=== PATIENT | female | born 1955 | race African-American/Black ===

== ENCOUNTER 2021-02-27 02:38 | Inpatient (IN) | payer MEDICARE, MEDICAID ==
[~2021-02-27] VITALS: Ht 167.6 cm; Wt 67.0 kg
[2021-02-27] MEDS ORDERED: METHYLPREDNISOLONE SOD SUCC 125 MG/2 ML VIAL IV STA (02:55)
[2021-02-27] MEDS ORDERED: ALBUTEROL (0.083%) 2.5MG/3ML NEB HHN STA (02:55)
[2021-02-27] MEDS ORDERED: IPRATROPIUM BROMIDE (0.02%) 0.5MG/2.5ML NEB HHN STA (02:55)
[2021-02-27] MEDS ORDERED: LEVOFLOXACIN 750MG PREMIX 150 ML IV ONE (03:00)
[2021-02-27] MEDS ORDERED: MAGNESIUM 2 G PREMIX 50 ML IV ONE (03:00)
[2021-02-27 03:26] LABS: HEMATOCRIT. 35.4 % (36.0-48.0); HEMOGLOBIN. 10.9 g/dL (12.0-16.0); MEAN CORPUSCULAR HEMOGLOBIN 23.3 pg (28.0-32.0); MEAN PLATELET VOLUME 7.9 fl (7.4-10.4); PLATELET 339 x1000/uL (130-400); RED BLOOD CELL COUNT 4.66 mill/uL (4.2-5.4); RED CELL DISTRIBUTION WIDTH 16.5 % (11.6-14.6)
[2021-02-27 03:30] LABS: CHLORIDE 104 mEq/L (98-107)
[2021-02-27 03:33] LABS: D-DIMER < 0.19 mg/L FEU (<0.50); PROTHROMBIN TIME 10.9 sec (9.6-11.0)
[2021-02-27] MEDS ORDERED: SODIUM CHLORIDE 0.9% 1000ML BAG (SEPSIS BOLUS) IV ONE (04:30)
[2021-02-27 06:53] VITALS: BP 130/97
[2021-02-27 07:40] VITALS: BP_SYST 127; BP_SYST 136; BP_DIAS 62
[2021-02-27 07:40] LABS: PLATELET ESTIMATE NORMAL
[2021-02-27] MEDS ORDERED: HYDR-4001 PO (08:05)
[2021-02-27] MEDS ORDERED: GABA-290 PO (08:05)
[2021-02-27] MEDS ORDERED: FURO80TA87 PO (08:05)
[2021-02-27] MEDS ORDERED: GABA-532 PO (08:05)
[2021-02-27] MEDS: AZITHROMYCIN 250 MG TABLET PO SCH (09:14)
[2021-02-27] MEDS: CEFTRIAXONE 1,000 MG in DEXTROSE 5% WATER 50 ML IV SCH (10:09)
[2021-02-27] MEDS: ALPRAZOLAM 0.5 MG TABLET PO PRN ×2 (11:21→20:15)
[2021-02-27] MEDS: GUAIFENESIN-DM 200MG-20MG/10ML UDC PO PRN ×2 (11:22→17:50)
[2021-02-27 12:00] VITALS: BP 134/68
[2021-02-27] MEDS ORDERED: ALBUTEROL 6.7GM HFA INHALER ORI PRN (14:00)
[2021-02-27] MEDS: ENOXAPARIN 40MG/0.4ML SYR SUBCUT SCH (14:25)
[2021-02-27 16:00] VITALS: BP 110/59
[2021-02-27 20:00] VITALS: BP 120/69
[2021-02-27 20:39] LABS: CHLORIDE 104 mEq/L (98-107)
[2021-02-28] VITALS (10 sets, daily range): BP systolic 106–132; BP diastolic 52–76
[2021-02-28] MEDS: ACETAMINOPHEN 325MG TABLET PO PRN (01:15)
[2021-02-28] MEDS: ONDANSETRON HCL 4MG/2ML INJ IV PRN ×2 (02:06→21:46)
[2021-02-28] MEDS: GUAIFENESIN-DM 200MG-20MG/10ML UDC PO PRN ×3 (02:18→21:46)
[2021-02-28] MEDS: CEFTRIAXONE 1,000 MG in DEXTROSE 5% WATER 50 ML IV SCH (08:21)
[2021-02-28] MEDS: AZITHROMYCIN 250 MG TABLET PO SCH (11:32)
[2021-02-28] MEDS: HYDROCODONE/ACETAMINOPHEN 5/325MG TABLET PO PRN (13:36)
[2021-02-28] MEDS: ENOXAPARIN 40MG/0.4ML SYR SUBCUT SCH (13:42)
[2021-03-01] VITALS (12 sets, daily range): BP systolic 105–131; BP diastolic 54–84
[2021-03-01] MEDS: HYDROCODONE/ACETAMINOPHEN 5/325MG TABLET PO PRN (01:50)
[2021-03-01] MEDS: ALPRAZOLAM 0.5 MG TABLET PO PRN ×2 (08:42→16:49)
[2021-03-01] MEDS: CEFTRIAXONE 1,000 MG in DEXTROSE 5% WATER 50 ML IV SCH (08:42)
[2021-03-01] MEDS: AZITHROMYCIN 250 MG TABLET PO SCH (08:42)
[2021-03-01] MEDS: GUAIFENESIN-DM 200MG-20MG/10ML UDC PO PRN ×3 (14:02→18:46)
[2021-03-01] MEDS: ENOXAPARIN 40MG/0.4ML SYR SUBCUT SCH (14:02)
[2021-03-01] MEDS: ACETAMINOPHEN 325MG TABLET PO PRN (14:34)
[2021-03-01] MEDS: ONDANSETRON HCL 4MG/2ML INJ IV PRN (14:34)
[2021-03-01] MEDS: IPRATROPIUM/ALBUTEROL 0.5-3(2.5)MG/3ML NEB HHN PRN (14:47)
[2021-03-01] MEDS: DOCUSATE SODIUM 100MG CAPSULE PO SCH (16:49)
[2021-03-02] VITALS (9 sets, daily range): BP systolic 98–136; BP diastolic 59–86
[2021-03-02] MEDS: HYDROCODONE/ACETAMINOPHEN 5/325MG TABLET PO PRN ×2 (01:41→23:42)
[2021-03-02 08:16] LABS: CHLORIDE 106 mEq/L (98-107)
[2021-03-02] MEDS: DOCUSATE SODIUM 100MG CAPSULE PO SCH ×2 (08:42→17:14)
[2021-03-02] MEDS: ALPRAZOLAM 0.5 MG TABLET PO PRN ×2 (08:42→17:14)
[2021-03-02] MEDS: AZITHROMYCIN 250 MG TABLET PO SCH (08:42)
[2021-03-02] MEDS: CEFTRIAXONE 1,000 MG in DEXTROSE 5% WATER 50 ML IV SCH (08:42)
[2021-03-02] MEDS ORDERED: LIDOCAINE HCL 1% 20ML VIAL (Pyxis) INJ ONE (09:54)
[2021-03-02] MEDS: GUAIFENESIN-DM 200MG-20MG/10ML UDC PO PRN ×2 (12:18→23:49)
[2021-03-02] MEDS: ENOXAPARIN 40MG/0.4ML SYR SUBCUT SCH (15:15)
[2021-03-02] MEDS: LACTULOSE 20G/30ML UDC PO PRN (17:14)
[2021-03-02] MEDS: ACETAMINOPHEN 325MG TABLET PO PRN (18:45)
[2021-03-02] MEDS: ONDANSETRON HCL 4MG/2ML INJ IV PRN (18:45)
[2021-03-02] MEDS: IPRATROPIUM/ALBUTEROL 0.5-3(2.5)MG/3ML NEB HHN SCH (20:11)
[2021-03-02 21:55] LABS: BASOPHILS % 0.9 % (0.0-2.0); EOSINOPHILS % 2.7 % (0.0-5.0); HEMOGLOBIN. 9.8 g/dL (12.0-16.0); LYMPHOCYTES % 11.4 % (20.0-50.0); MEAN CORPUSCULAR HEMOGLOBIN 23.4 pg (28.0-32.0); MEAN CORPUSCULAR VOLUME 76.5 fL (81.0-99.0); MEAN PLATELET VOLUME 8.1 fl (7.4-10.4); MONOCYTES % 5.5 % (2.0-8.0); NEUTROPHILS % 79.5 % (40.0-76.0); PLATELET 326 x1000/uL (130-400); RED BLOOD CELL COUNT 4.18 mill/uL (4.2-5.4); RED CELL DISTRIBUTION WIDTH 16.7 % (11.6-14.6)
[2021-03-03] VITALS (11 sets, daily range): BP systolic 105–125; BP diastolic 56–74
[2021-03-03] MEDS: IPRATROPIUM/ALBUTEROL 0.5-3(2.5)MG/3ML NEB HHN SCH ×4 (02:07→20:36)
[2021-03-03] MEDS: ALPRAZOLAM 0.5 MG TABLET PO PRN (02:24)
[2021-03-03] MEDS: GUAIFENESIN-DM 200MG-20MG/10ML UDC PO PRN ×2 (08:36→15:32)
[2021-03-03] MEDS: CEFTRIAXONE 1,000 MG in DEXTROSE 5% WATER 50 ML IV SCH (08:36)
[2021-03-03] MEDS: DOCUSATE SODIUM 100MG CAPSULE PO SCH ×2 (08:36→16:19)
[2021-03-03] MEDS: ENOXAPARIN 30MG/0.3ML SYR SUBCUT SCH ×2 (08:36→21:29)
[2021-03-03] MEDS: AZITHROMYCIN 250 MG TABLET PO SCH (08:36)
[2021-03-03] MEDS: HYDROCODONE/ACETAMINOPHEN 5/325MG TABLET PO PRN ×2 (10:34→15:35)
[2021-03-03 22:49] LABS: CLARITY URINE CLEAR (CLEAR); COLOR URINE DARK YELLOW (YELLOW); KETONES URINE TRACE (NEGATIVE); LEUKOCYTE ESTERASE URINE NEGATIVE (NEGATIVE); NITRITE URINE NEGATIVE (NEGATIVE); OCCULT BLOOD URINE NEGATIVE (NEGATIVE); PROTEIN URINE TRACE (NEGATIVE); SPECIFIC GRAVITY URINE 1.035 (1.005-1.030)
[2021-03-04] VITALS (12 sets, daily range): BP systolic 108–129; BP diastolic 56–80
[2021-03-04] MEDS: GUAIFENESIN-DM 200MG-20MG/10ML UDC PO PRN ×3 (00:56→16:32)
[2021-03-04] MEDS: HYDROCODONE/ACETAMINOPHEN 5/325MG TABLET PO PRN ×2 (00:57→08:58)
[2021-03-04] MEDS: IPRATROPIUM/ALBUTEROL 0.5-3(2.5)MG/3ML NEB HHN SCH ×4 (08:31→21:19)
[2021-03-04] MEDS: ENOXAPARIN 30MG/0.3ML SYR SUBCUT SCH ×2 (08:57→21:08)
[2021-03-04] MEDS: DOCUSATE SODIUM 100MG CAPSULE PO SCH ×2 (08:57→16:32)
[2021-03-04] MEDS: ALPRAZOLAM 0.5 MG TABLET PO PRN (16:32)
[2021-03-04] MEDS: ONDANSETRON HCL 4MG/2ML INJ IV PRN (21:08)
[2021-03-05] VITALS (9 sets, daily range): BP systolic 101–137; BP diastolic 55–82
[2021-03-05] MEDS: IPRATROPIUM/ALBUTEROL 0.5-3(2.5)MG/3ML NEB HHN SCH ×5 (03:26→23:30)
[2021-03-05] MEDS: ONDANSETRON HCL 4MG/2ML INJ IV PRN ×3 (04:21→21:20)
[2021-03-05] MEDS: GUAIFENESIN-DM 200MG-20MG/10ML UDC PO PRN ×3 (04:21→21:20)
[2021-03-05] MEDS: ENOXAPARIN 30MG/0.3ML SYR SUBCUT SCH ×2 (08:12→20:09)
[2021-03-05] MEDS: DOCUSATE SODIUM 100MG CAPSULE PO SCH ×2 (08:12→20:11)
[2021-03-05] MEDS: ACETAMINOPHEN 325MG TABLET PO PRN ×2 (08:12→20:09)
[2021-03-05] MEDS: ALPRAZOLAM 0.5 MG TABLET PO PRN ×2 (11:40→23:37)
[2021-03-05 13:22] LABS: BASOPHILS % 0.8 % (0.0-2.0); EOSINOPHILS % 2.2 % (0.0-5.0); HEMATOCRIT. 29.2 % (36.0-48.0); HEMOGLOBIN. 9.2 g/dL (12.0-16.0); LYMPHOCYTES % 18.7 % (20.0-50.0); MEAN CORPUSCULAR HEMOGLOBIN 24.2 pg (28.0-32.0); MEAN CORPUSCULAR VOLUME 76.4 fL (81.0-99.0); MEAN PLATELET VOLUME 8.1 fl (7.4-10.4); MONOCYTES % 5.7 % (2.0-8.0); NEUTROPHILS % 72.6 % (40.0-76.0); PLATELET 252 x1000/uL (130-400); RED BLOOD CELL COUNT 3.82 mill/uL (4.2-5.4)
[2021-03-05 13:35] LABS: CHLORIDE 103 mEq/L (98-107)
[2021-03-05] MEDS ORDERED: NALOXONE HCL 0.4MG/ML VIAL IV PRN (23:15)
[2021-03-06] VITALS: BP 105/63
[2021-03-06] MEDS: IPRATROPIUM/ALBUTEROL 0.5-3(2.5)MG/3ML NEB HHN SCH ×5 (03:12→19:59)
[2021-03-06 04:00] VITALS: BP 124/77
[2021-03-06] MEDS: GUAIFENESIN-DM 200MG-20MG/10ML UDC PO PRN ×3 (06:28→21:23)
[2021-03-06 07:23] LABS: CHLORIDE 105 mEq/L (98-107)
[2021-03-06 08:00] VITALS: BP 148/66
[2021-03-06] MEDS: LACTULOSE 20G/30ML UDC PO PRN (10:12)
[2021-03-06] MEDS: ALPRAZOLAM 0.5 MG TABLET PO PRN ×2 (10:12→20:30)
[2021-03-06] MEDS: DOCUSATE SODIUM 100MG CAPSULE PO SCH ×2 (10:12→17:50)
[2021-03-06] MEDS: ENOXAPARIN 30MG/0.3ML SYR SUBCUT SCH ×2 (10:12→20:31)
[2021-03-06] MEDS: ACETAMINOPHEN 325MG TABLET PO PRN (10:13)
[2021-03-06 12:00] VITALS: BP 164/48
[2021-03-06 16:00] VITALS: BP 114/65
[2021-03-06] MEDS: HYDROCODONE/ACETAMINOPHEN 5/325MG TABLET PO PRN (17:51)
[2021-03-06 20:00] VITALS: BP 128/105
[2021-03-07] VITALS (7 sets, daily range): BP systolic 103–130; BP diastolic 57–84
[2021-03-07] MEDS: IPRATROPIUM/ALBUTEROL 0.5-3(2.5)MG/3ML NEB HHN PRN (01:29)
[2021-03-07] MEDS: GUAIFENESIN-DM 200MG-20MG/10ML UDC PO PRN ×2 (01:39→09:29)
[2021-03-07] MEDS: ACETAMINOPHEN 325MG TABLET PO PRN ×2 (01:50→10:08)
[2021-03-07] MEDS: IPRATROPIUM/ALBUTEROL 0.5-3(2.5)MG/3ML NEB HHN SCH ×4 (08:41→20:13)
[2021-03-07] MEDS: ENOXAPARIN 30MG/0.3ML SYR SUBCUT SCH ×2 (09:23→20:18)
[2021-03-07] MEDS: DOCUSATE SODIUM 100MG CAPSULE PO SCH ×2 (09:23→17:28)
[2021-03-07] MEDS: ALPRAZOLAM 0.5 MG TABLET PO PRN (20:18)
[2021-03-07] MEDS: KETOROLAC 15MG/ML VIAL IV PRN (20:19)
[2021-03-08] VITALS (13 sets, daily range): BP systolic 103–148; BP diastolic 31–75
[2021-03-08] MEDS: IPRATROPIUM/ALBUTEROL 0.5-3(2.5)MG/3ML NEB HHN SCH ×6 (00:24→20:27)
[2021-03-08] MEDS: GUAIFENESIN/CODEINE 200-20MG/10ML UDC PO PRN ×4 (04:39→23:47)
[2021-03-08] MEDS: ENOXAPARIN 30MG/0.3ML SYR SUBCUT SCH ×2 (08:37→21:07)
[2021-03-08] MEDS: DOCUSATE SODIUM 100MG CAPSULE PO SCH ×2 (08:37→17:00)
[2021-03-08] MEDS: HYDROCODONE/ACETAMINOPHEN 5/325MG TABLET PO PRN (10:31)
[2021-03-08] MEDS: KETOROLAC 15MG/ML VIAL IV PRN ×2 (10:48→17:13)
[2021-03-08] MEDS: AZATHIOPRINE 50MG TABLET PO SCH (17:00)
[2021-03-08] MEDS: LACTULOSE 20G/30ML UDC PO PRN (21:06)
[2021-03-09] VITALS (12 sets, daily range): BP systolic 100–147; BP diastolic 62–78
[2021-03-09] MEDS: IPRATROPIUM/ALBUTEROL 0.5-3(2.5)MG/3ML NEB HHN SCH ×7 (01:20→20:27)
[2021-03-09] MEDS: GUAIFENESIN/CODEINE 200-20MG/10ML UDC PO PRN ×2 (06:40→21:32)
[2021-03-09] MEDS: ENOXAPARIN 30MG/0.3ML SYR SUBCUT SCH ×2 (09:18→20:56)
[2021-03-09] MEDS: DOCUSATE SODIUM 100MG CAPSULE PO SCH ×2 (09:18→17:55)
[2021-03-09] MEDS: AZATHIOPRINE 50MG TABLET PO SCH ×2 (09:18→17:55)
[2021-03-09] MEDS: KETOROLAC 15MG/ML VIAL IV PRN (12:29)
[2021-03-09] MEDS: ALPRAZOLAM 0.5 MG TABLET PO PRN ×2 (15:26→21:32)
[2021-03-09] MEDS: METHYLPREDNISOLONE SOD SUCC 125 MG/2 ML VIAL IV SCH (17:55)
[2021-03-10] VITALS (18 sets, daily range): BP systolic 99–160; BP diastolic 42–106
[2021-03-10] MEDS: IPRATROPIUM/ALBUTEROL 0.5-3(2.5)MG/3ML NEB HHN SCH ×5 (00:22→21:42)
[2021-03-10] MEDS: METHYLPREDNISOLONE SOD SUCC 125 MG/2 ML VIAL IV SCH ×5 (00:23→23:23)
[2021-03-10] MEDS: AZATHIOPRINE 50MG TABLET PO SCH ×2 (09:41→17:43)
[2021-03-10] MEDS: DOCUSATE SODIUM 100MG CAPSULE PO SCH ×2 (09:41→17:45)
[2021-03-10] MEDS: ENOXAPARIN 30MG/0.3ML SYR SUBCUT SCH ×2 (09:41→20:27)
[2021-03-10] MEDS: GUAIFENESIN/CODEINE 200-20MG/10ML UDC PO PRN (09:50)
[2021-03-10] MEDS: ALPRAZOLAM 0.5 MG TABLET PO PRN (14:50)
[2021-03-10] MEDS: HYDROCODONE/ACETAMINOPHEN 5/325MG TABLET PO PRN (17:44)
[2021-03-10] MEDS: ZOLPIDEM TARTRATE 5MG TABLET PO PRN (23:24)
[2021-03-11] VITALS (10 sets, daily range): BP systolic 114–142; BP diastolic 59–84
[2021-03-11] MEDS: GUAIFENESIN/CODEINE 200-20MG/10ML UDC PO PRN ×2 (02:09→23:16)
[2021-03-11] MEDS: IPRATROPIUM/ALBUTEROL 0.5-3(2.5)MG/3ML NEB HHN SCH ×6 (04:00→20:11)
[2021-03-11] MEDS: METHYLPREDNISOLONE SOD SUCC 125 MG/2 ML VIAL IV SCH ×4 (05:07→23:16)
[2021-03-11] MEDS: DOCUSATE SODIUM 100MG CAPSULE PO SCH ×2 (09:00→17:25)
[2021-03-11] MEDS: AZATHIOPRINE 50MG TABLET PO SCH ×2 (09:00→17:25)
[2021-03-11] MEDS: ENOXAPARIN 30MG/0.3ML SYR SUBCUT SCH ×2 (09:00→21:40)
[2021-03-11] MEDS: KETOROLAC 15MG/ML VIAL IV PRN ×2 (15:53→23:49)
[2021-03-11] MEDS: ALPRAZOLAM 0.5 MG TABLET PO PRN (15:54)
[2021-03-11] MEDS: ZOLPIDEM TARTRATE 5MG TABLET PO PRN (23:16)
[2021-03-12] VITALS (12 sets, daily range): BP systolic 124–152; BP diastolic 67–101
[2021-03-12] MEDS: IPRATROPIUM/ALBUTEROL 0.5-3(2.5)MG/3ML NEB HHN SCH ×9 (00:17→20:29)
[2021-03-12] MEDS: METHYLPREDNISOLONE SOD SUCC 125 MG/2 ML VIAL IV SCH ×3 (05:12→17:29)
[2021-03-12 06:12] LABS: CHLORIDE 105 mEq/L (98-107)
[2021-03-12 06:13] LABS: HEMATOCRIT. 27.8 % (36.0-48.0); HEMOGLOBIN. 8.5 g/dL (12.0-16.0); MEAN CORPUSCULAR HEMOGLOBIN 23.5 pg (28.0-32.0); MEAN CORPUSCULAR VOLUME 76.7 fL (81.0-99.0); MEAN PLATELET VOLUME 8.5 fl (7.4-10.4); PLATELET 285 x1000/uL (130-400); RED BLOOD CELL COUNT 3.62 mill/uL (4.2-5.4)
[2021-03-12] MEDS ORDERED: MAGNESIUM/ALUMINUM HYDROXIDE/SIMETHICONE 30ML UDC PO PRN (07:30)
[2021-03-12] MEDS: ENOXAPARIN 30MG/0.3ML SYR SUBCUT SCH ×2 (08:47→20:49)
[2021-03-12] MEDS: DOCUSATE SODIUM 100MG CAPSULE PO SCH ×2 (08:48→16:33)
[2021-03-12] MEDS: AZATHIOPRINE 50MG TABLET PO SCH ×2 (08:48→16:32)
[2021-03-12] MEDS: OMEPRAZOLE 20MG CAPSULE EXTENDED RELEASE PO SCH (08:48)
[2021-03-12] MEDS: ALPRAZOLAM 0.5 MG TABLET PO PRN ×2 (12:01→20:48)
[2021-03-12 15:05] LABS: PLATELET ESTIMATE NORMAL
[2021-03-12] MEDS: KETOROLAC 15MG/ML VIAL IV PRN (16:24)
[2021-03-12] MEDS: GUAIFENESIN/CODEINE 200-20MG/10ML UDC PO PRN (16:32)
[2021-03-13] VITALS (11 sets, daily range): BP systolic 110–155; BP diastolic 60–89
[2021-03-13] MEDS: IPRATROPIUM/ALBUTEROL 0.5-3(2.5)MG/3ML NEB HHN SCH ×6 (00:07→20:19)
[2021-03-13] MEDS: ALPRAZOLAM 0.5 MG TABLET PO PRN ×2 (04:45→13:50)
[2021-03-13] MEDS: KETOROLAC 15MG/ML VIAL IV PRN ×2 (04:46→11:39)
[2021-03-13] MEDS: METHYLPREDNISOLONE SOD SUCC 125 MG/2 ML VIAL IV SCH ×5 (05:29→23:00)
[2021-03-13] MEDS: OMEPRAZOLE 20MG CAPSULE EXTENDED RELEASE PO SCH (07:54)
[2021-03-13] MEDS: ENOXAPARIN 30MG/0.3ML SYR SUBCUT SCH ×2 (09:00→20:02)
[2021-03-13] MEDS: DOCUSATE SODIUM 100MG CAPSULE PO SCH ×2 (09:22→17:14)
[2021-03-13] MEDS: AZATHIOPRINE 50MG TABLET PO SCH ×2 (09:22→17:14)
[2021-03-13] MEDS ORDERED: MORPHINE SULFATE 2 MG/ML CPJ (NOT FOR IM USE) IV NR (14:45)
[2021-03-13] MEDS: IPRATROPIUM/ALBUTEROL 0.5-3(2.5)MG/3ML NEB HHN PRN (18:19)
[2021-03-14] VITALS (11 sets, daily range): BP systolic 128–152; BP diastolic 67–128
[2021-03-14] MEDS: IPRATROPIUM/ALBUTEROL 0.5-3(2.5)MG/3ML NEB HHN SCH ×7 (00:19→20:37)
[2021-03-14] MEDS: GUAIFENESIN/CODEINE 200-20MG/10ML UDC PO PRN ×3 (05:12→20:38)
[2021-03-14] MEDS: METHYLPREDNISOLONE SOD SUCC 125 MG/2 ML VIAL IV SCH ×4 (05:12→23:35)
[2021-03-14 06:46] LABS: CHLORIDE 104 mEq/L (98-107); HEMATOCRIT. 30.1 % (36.0-48.0); HEMOGLOBIN. 9.2 g/dL (12.0-16.0); MEAN CORPUSCULAR HEMOGLOBIN 23.5 pg (28.0-32.0); MEAN CORPUSCULAR VOLUME 76.6 fL (81.0-99.0); MEAN PLATELET VOLUME 8.3 fl (7.4-10.4); PLATELET 346 x1000/uL (130-400); RED BLOOD CELL COUNT 3.93 mill/uL (4.2-5.4); RED CELL DISTRIBUTION WIDTH 15.2 % (11.6-14.6)
[2021-03-14] MEDS: OMEPRAZOLE 20MG CAPSULE EXTENDED RELEASE PO SCH (08:05)
[2021-03-14] MEDS: DOCUSATE SODIUM 100MG CAPSULE PO SCH ×2 (09:03→18:08)
[2021-03-14] MEDS: AZATHIOPRINE 50MG TABLET PO SCH ×2 (09:11→18:09)
[2021-03-14] MEDS: ENOXAPARIN 30MG/0.3ML SYR SUBCUT SCH ×2 (09:13→20:38)
[2021-03-14] MEDS ORDERED: NALOXONE HCL 0.4MG/ML VIAL IV PRN (13:45)
[2021-03-14] MEDS: MORPHINE SULFATE 2 MG/ML CPJ (NOT FOR IM USE) IV PRN (15:57)
[2021-03-14] MEDS ORDERED: DEXTROSE 50% WATER 50ML SYRINGE IV PRN (19:30)
[2021-03-14] MEDS: BLOOD SUGAR DIAGNOSTIC STRIP TEST SCH (20:21)
[2021-03-14] MEDS: ONDANSETRON HCL 4MG/2ML INJ IV PRN (20:38)
[2021-03-14] MEDS: INSULIN LISPRO 100 UNITS/ML SUBCUT SCH (20:39)
[2021-03-14 23:35] LABS: PLATELET ESTIMATE NORMAL
[2021-03-15] VITALS (12 sets, daily range): BP systolic 105–154; BP diastolic 57–89
[2021-03-15] MEDS: IPRATROPIUM/ALBUTEROL 0.5-3(2.5)MG/3ML NEB HHN SCH ×3 (00:24→20:36)
[2021-03-15] MEDS: ZOLPIDEM TARTRATE 5MG TABLET PO PRN (03:04)
[2021-03-15] MEDS: ONDANSETRON HCL 4MG/2ML INJ IV PRN ×2 (03:04→23:25)
[2021-03-15] MEDS: METHYLPREDNISOLONE SOD SUCC 125 MG/2 ML VIAL IV SCH ×4 (06:41→23:25)
[2021-03-15 07:21] LABS: HEMATOCRIT. 27.7 % (36.0-48.0); HEMOGLOBIN. 8.4 g/dL (12.0-16.0); MEAN CORPUSCULAR HEMOGLOBIN 23.1 pg (28.0-32.0); MEAN CORPUSCULAR VOLUME 76.5 fL (81.0-99.0); MEAN PLATELET VOLUME 7.9 fl (7.4-10.4); PLATELET 344 x1000/uL (130-400); RED BLOOD CELL COUNT 3.62 mill/uL (4.2-5.4); RED CELL DISTRIBUTION WIDTH 16.1 % (11.6-14.6)
[2021-03-15] MEDS: BLOOD SUGAR DIAGNOSTIC STRIP TEST SCH ×4 (07:30→21:13)
[2021-03-15] MEDS: METFORMIN HCL 500MG TABLET PO SCH ×2 (07:59→17:30)
[2021-03-15] MEDS: OMEPRAZOLE 20MG CAPSULE EXTENDED RELEASE PO SCH (07:59)
[2021-03-15] MEDS: INSULIN LISPRO 100 UNITS/ML SUBCUT SCH ×4 (08:00→21:12)
[2021-03-15] MEDS: DOCUSATE SODIUM 100MG CAPSULE PO SCH ×2 (08:01→17:30)
[2021-03-15] MEDS: AZATHIOPRINE 50MG TABLET PO SCH ×2 (08:01→17:30)
[2021-03-15] MEDS: ENOXAPARIN 30MG/0.3ML SYR SUBCUT SCH ×2 (08:03→21:11)
[2021-03-15] MEDS: IPRATROPIUM/ALBUTEROL 0.5-3(2.5)MG/3ML NEB HHN PRN ×3 (08:18→16:00)
[2021-03-15] MEDS: GUAIFENESIN/CODEINE 200-20MG/10ML UDC PO PRN ×2 (10:32→21:11)
[2021-03-15] MEDS: MORPHINE SULFATE 2 MG/ML CPJ (NOT FOR IM USE) IV PRN ×2 (10:36→18:07)
[2021-03-15 17:17] LABS: PLATELET ESTIMATE NORMAL
[2021-03-16] VITALS (12 sets, daily range): BP systolic 100–150; BP diastolic 25–90
[2021-03-16] MEDS: IPRATROPIUM/ALBUTEROL 0.5-3(2.5)MG/3ML NEB HHN SCH ×5 (00:17→20:37)
[2021-03-16] MEDS: METHYLPREDNISOLONE SOD SUCC 125 MG/2 ML VIAL IV SCH ×3 (05:32→17:24)
[2021-03-16] MEDS: ACETAMINOPHEN 325MG TABLET PO PRN (06:45)
[2021-03-16] MEDS: GUAIFENESIN/CODEINE 200-20MG/10ML UDC PO PRN (06:45)
[2021-03-16] MEDS: IPRATROPIUM/ALBUTEROL 0.5-3(2.5)MG/3ML NEB HHN PRN (07:58)
[2021-03-16] MEDS: BLOOD SUGAR DIAGNOSTIC STRIP TEST SCH ×4 (08:27→21:03)
[2021-03-16] MEDS: DOCUSATE SODIUM 100MG CAPSULE PO SCH ×2 (08:46→17:24)
[2021-03-16] MEDS: ENOXAPARIN 30MG/0.3ML SYR SUBCUT SCH ×2 (08:46→21:02)
[2021-03-16] MEDS: AZATHIOPRINE 50MG TABLET PO SCH ×2 (08:47→17:24)
[2021-03-16] MEDS: METFORMIN HCL 500MG TABLET PO SCH ×2 (08:47→17:24)
[2021-03-16] MEDS: FAMOTIDINE 20MG TABLET PO SCH ×2 (08:47→21:02)
[2021-03-16] MEDS: INSULIN LISPRO 100 UNITS/ML SUBCUT SCH ×4 (08:48→21:06)
[2021-03-16 12:28] LABS: CHLORIDE 98 mEq/L (98-107)
[2021-03-16] MEDS: KETOROLAC 15MG/ML VIAL IV PRN (12:41)
[2021-03-16] MEDS: ALPRAZOLAM 0.5 MG TABLET PO PRN (17:31)
[2021-03-17] VITALS: BP 127/78
[2021-03-17] MEDS: IPRATROPIUM/ALBUTEROL 0.5-3(2.5)MG/3ML NEB HHN SCH ×6 (00:30→21:20)
[2021-03-17] MEDS: METHYLPREDNISOLONE SOD SUCC 125 MG/2 ML VIAL IV SCH ×4 (00:40→17:50)
[2021-03-17] MEDS: ALPRAZOLAM 0.5 MG TABLET PO PRN (00:48)
[2021-03-17] MEDS: MORPHINE SULFATE 2 MG/ML CPJ (NOT FOR IM USE) IV PRN ×2 (00:48→20:14)
[2021-03-17 02:00] VITALS: BP 136/72
[2021-03-17 06:00] VITALS: BP 99/57
[2021-03-17 08:00] VITALS: BP 113/65
[2021-03-17] MEDS: BLOOD SUGAR DIAGNOSTIC STRIP TEST SCH ×4 (08:05→21:19)
[2021-03-17] MEDS: FAMOTIDINE 20MG TABLET PO SCH ×2 (08:32→20:36)
[2021-03-17] MEDS: ENOXAPARIN 30MG/0.3ML SYR SUBCUT SCH ×2 (08:32→20:41)
[2021-03-17] MEDS: AZATHIOPRINE 50MG TABLET PO SCH ×2 (08:32→17:48)
[2021-03-17] MEDS: DOCUSATE SODIUM 100MG CAPSULE PO SCH ×2 (08:32→17:00)
[2021-03-17] MEDS: METFORMIN HCL 500MG TABLET PO SCH ×2 (08:32→17:48)
[2021-03-17] MEDS: INSULIN LISPRO 100 UNITS/ML SUBCUT SCH ×4 (08:34→20:38)
[2021-03-17] MEDS: ALPRAZOLAM 0.25 MG TABLET PO PRN (16:18)
[2021-03-17] MEDS: ACETYLCYSTEINE 100MG/ML 10% VIAL 4ML INH SCH ×2 (17:17→22:00)
[2021-03-17 18:00] VITALS: BP 141/71
[2021-03-17 20:00] VITALS: BP 138/96
[2021-03-17] MEDS: GUAIFENESIN/CODEINE 200-20MG/10ML UDC PO PRN (20:36)
[2021-03-18] VITALS: BP 119/59
[2021-03-18] MEDS: METHYLPREDNISOLONE SOD SUCC 125 MG/2 ML VIAL IV SCH ×5 (00:37→23:27)
[2021-03-18 02:00] VITALS: BP 139/70
[2021-03-18] MEDS: IPRATROPIUM/ALBUTEROL 0.5-3(2.5)MG/3ML NEB HHN SCH ×6 (03:01→20:01)
[2021-03-18 04:00] VITALS: BP 109/58
[2021-03-18] MEDS: GUAIFENESIN/CODEINE 200-20MG/10ML UDC PO PRN (05:01)
[2021-03-18] MEDS: IPRATROPIUM/ALBUTEROL 0.5-3(2.5)MG/3ML NEB HHN PRN (05:54)
[2021-03-18] MEDS: BLOOD SUGAR DIAGNOSTIC STRIP TEST SCH ×4 (07:30→21:00)
[2021-03-18] MEDS: AZATHIOPRINE 50MG TABLET PO SCH ×2 (08:07→17:18)
[2021-03-18] MEDS: DOCUSATE SODIUM 100MG CAPSULE PO SCH ×2 (08:07→17:17)
[2021-03-18] MEDS: ENOXAPARIN 30MG/0.3ML SYR SUBCUT SCH ×2 (08:07→20:48)
[2021-03-18] MEDS: FAMOTIDINE 20MG TABLET PO SCH ×2 (08:07→20:48)
[2021-03-18] MEDS: METFORMIN HCL 500MG TABLET PO SCH ×2 (08:08→17:18)
[2021-03-18] MEDS: INSULIN LISPRO 100 UNITS/ML SUBCUT SCH ×4 (08:09→20:49)
[2021-03-18] MEDS: ACETYLCYSTEINE 100MG/ML 10% VIAL 4ML INH SCH ×2 (10:21→17:01)
[2021-03-18] MEDS: ALPRAZOLAM 0.25 MG TABLET PO PRN (13:06)
[2021-03-18] MEDS: MORPHINE SULFATE 2 MG/ML CPJ (NOT FOR IM USE) IV PRN (19:38)
[2021-03-19] VITALS (9 sets, daily range): BP systolic 119–146; BP diastolic 53–93
[2021-03-19] MEDS: IPRATROPIUM/ALBUTEROL 0.5-3(2.5)MG/3ML NEB HHN SCH ×6 (00:13→20:35)
[2021-03-19] MEDS: GUAIFENESIN/CODEINE 200-20MG/10ML UDC PO PRN ×3 (01:07→21:35)
[2021-03-19] MEDS: METHYLPREDNISOLONE SOD SUCC 125 MG/2 ML VIAL IV SCH ×4 (05:10→23:17)
[2021-03-19] MEDS: BLOOD SUGAR DIAGNOSTIC STRIP TEST SCH ×4 (07:30→21:07)
[2021-03-19] MEDS: METFORMIN HCL 500MG TABLET PO SCH ×2 (08:39→18:51)
[2021-03-19] MEDS: DOCUSATE SODIUM 100MG CAPSULE PO SCH ×2 (08:39→18:51)
[2021-03-19] MEDS: AZATHIOPRINE 50MG TABLET PO SCH ×2 (08:39→18:52)
[2021-03-19] MEDS: ENOXAPARIN 30MG/0.3ML SYR SUBCUT SCH ×2 (08:39→21:06)
[2021-03-19] MEDS: FAMOTIDINE 20MG TABLET PO SCH ×2 (08:39→21:06)
[2021-03-19] MEDS: INSULIN LISPRO 100 UNITS/ML SUBCUT SCH ×4 (08:40→21:08)
[2021-03-19] MEDS: ALPRAZOLAM 0.25 MG TABLET PO PRN ×2 (08:49→23:25)
[2021-03-19 13:52] LABS: HEMATOCRIT. 31.5 % (36.0-48.0); HEMOGLOBIN. 9.6 g/dL (12.0-16.0); MEAN CORPUSCULAR HEMOGLOBIN 23.6 pg (28.0-32.0); MEAN CORPUSCULAR VOLUME 77.7 fL (81.0-99.0); MEAN PLATELET VOLUME 7.9 fl (7.4-10.4); PLATELET 391 x1000/uL (130-400); RED BLOOD CELL COUNT 4.06 mill/uL (4.2-5.4); RED CELL DISTRIBUTION WIDTH 16.5 % (11.6-14.6)
[2021-03-19 13:58] LABS: CHLORIDE 99 mEq/L (98-107)
[2021-03-19 14:23] LABS: PLATELET ESTIMATE NORMAL
[2021-03-19] MEDS ORDERED: NALOXONE HCL 0.4MG/ML VIAL IV PRN (16:15)
[2021-03-19] MEDS: INSULIN GLARGINE UD 100 UNITS/ML SYR SUBCUT SCH (21:09)
[2021-03-20] VITALS (11 sets, daily range): BP systolic 118–155; BP diastolic 61–99
[2021-03-20] MEDS: IPRATROPIUM/ALBUTEROL 0.5-3(2.5)MG/3ML NEB HHN SCH ×5 (04:12→20:58)
[2021-03-20] MEDS: METHYLPREDNISOLONE SOD SUCC 125 MG/2 ML VIAL IV SCH ×4 (05:45→23:34)
[2021-03-20] MEDS: BLOOD SUGAR DIAGNOSTIC STRIP TEST SCH ×4 (08:07→20:45)
[2021-03-20] MEDS: DOCUSATE SODIUM 100MG CAPSULE PO SCH ×2 (08:30→17:30)
[2021-03-20] MEDS: FAMOTIDINE 20MG TABLET PO SCH ×2 (08:30→20:44)
[2021-03-20] MEDS: METFORMIN HCL 500MG TABLET PO SCH ×2 (08:30→18:05)
[2021-03-20] MEDS: ENOXAPARIN 30MG/0.3ML SYR SUBCUT SCH ×2 (08:30→20:44)
[2021-03-20] MEDS: AZATHIOPRINE 50MG TABLET PO SCH ×2 (08:30→17:30)
[2021-03-20] MEDS: INSULIN LISPRO 100 UNITS/ML SUBCUT SCH ×3 (08:33→20:46)
[2021-03-20] MEDS: ALPRAZOLAM 0.25 MG TABLET PO PRN ×2 (08:59→16:55)
[2021-03-20] MEDS: GUAIFENESIN/CODEINE 200-20MG/10ML UDC PO PRN (08:59)
[2021-03-20] MEDS: INSULIN GLARGINE UD 100 UNITS/ML SYR SUBCUT SCH ×2 (11:06→20:46)
[2021-03-20] MEDS: FLUTICASONE PROPIONATE 50MCG/SPRAY BOTTLE BOTHNSTRLS SCH (20:44)
[2021-03-21] VITALS (10 sets, daily range): BP systolic 98–145; BP diastolic 67–88
[2021-03-21] MEDS: IPRATROPIUM/ALBUTEROL 0.5-3(2.5)MG/3ML NEB HHN SCH ×7 (00:12→23:34)
[2021-03-21] MEDS: HYDROCODONE/ACETAMINOPHEN 10/325MG TABLET PO PRN (00:22)
[2021-03-21] MEDS: GUAIFENESIN/CODEINE 200-20MG/10ML UDC PO PRN ×3 (01:11→20:27)
[2021-03-21] MEDS: METHYLPREDNISOLONE SOD SUCC 125 MG/2 ML VIAL IV SCH (05:59)
[2021-03-21] MEDS: BLOOD SUGAR DIAGNOSTIC STRIP TEST SCH ×4 (07:30→21:53)
[2021-03-21] MEDS: AZATHIOPRINE 50MG TABLET PO SCH ×2 (08:45→17:56)
[2021-03-21] MEDS: FAMOTIDINE 20MG TABLET PO SCH ×2 (08:45→20:28)
[2021-03-21] MEDS: DOCUSATE SODIUM 100MG CAPSULE PO SCH ×2 (08:45→17:55)
[2021-03-21] MEDS: METFORMIN HCL 500MG TABLET PO SCH ×2 (08:45→17:55)
[2021-03-21] MEDS: ENOXAPARIN 30MG/0.3ML SYR SUBCUT SCH ×2 (08:46→20:27)
[2021-03-21] MEDS: INSULIN LISPRO 100 UNITS/ML SUBCUT SCH ×4 (08:49→21:00)
[2021-03-21] MEDS: FLUTICASONE PROPIONATE 50MCG/SPRAY BOTTLE BOTHNSTRLS SCH ×2 (09:00→18:00)
[2021-03-21] MEDS: INSULIN GLARGINE UD 100 UNITS/ML SYR SUBCUT SCH ×2 (10:20→21:55)
[2021-03-21] MEDS: METHYLPREDNISOLONE SOD SUCC 40 MG/ML VIAL IV SCH ×3 (11:08→17:59)
[2021-03-21] MEDS: ONDANSETRON HCL 4MG/2ML INJ IV PRN (20:27)
[2021-03-22] VITALS (11 sets, daily range): BP systolic 110–138; BP diastolic 52–79
[2021-03-22] MEDS: IPRATROPIUM/ALBUTEROL 0.5-3(2.5)MG/3ML NEB HHN SCH ×5 (03:25→23:50)
[2021-03-22] MEDS: GUAIFENESIN/CODEINE 200-20MG/10ML UDC PO PRN ×2 (04:27→14:23)
[2021-03-22] MEDS: INSULIN LISPRO 100 UNITS/ML SUBCUT SCH ×4 (08:00→21:27)
[2021-03-22] MEDS: BLOOD SUGAR DIAGNOSTIC STRIP TEST SCH ×4 (08:26→21:00)
[2021-03-22] MEDS: ENOXAPARIN 30MG/0.3ML SYR SUBCUT SCH ×2 (08:27→21:29)
[2021-03-22] MEDS: METHYLPREDNISOLONE SOD SUCC 40 MG/ML VIAL IV SCH ×3 (08:27→19:55)
[2021-03-22] MEDS: FAMOTIDINE 20MG TABLET PO SCH ×2 (08:27→21:28)
[2021-03-22] MEDS: DOCUSATE SODIUM 100MG CAPSULE PO SCH ×2 (08:28→19:54)
[2021-03-22] MEDS: AZATHIOPRINE 50MG TABLET PO SCH ×2 (08:28→19:54)
[2021-03-22] MEDS: METFORMIN HCL 500MG TABLET PO SCH ×2 (08:28→19:54)
[2021-03-22] MEDS: ALPRAZOLAM 0.25 MG TABLET PO PRN ×2 (10:28→21:40)
[2021-03-22] MEDS: INSULIN GLARGINE UD 100 UNITS/ML SYR SUBCUT SCH ×2 (10:32→21:35)
[2021-03-22] MEDS: FLUTICASONE PROPIONATE 50MCG/SPRAY BOTTLE BOTHNSTRLS SCH ×2 (10:33→19:53)
[2021-03-22] MEDS ORDERED: FUROSEMIDE 40MG/4ML VIAL IVP NR (15:15)
[2021-03-22] MEDS: HYDROCODONE/ACETAMINOPHEN 10/325MG TABLET PO PRN (21:41)
[2021-03-23] VITALS (11 sets, daily range): BP systolic 113–132; BP diastolic 62–78
[2021-03-23] MEDS: IPRATROPIUM/ALBUTEROL 0.5-3(2.5)MG/3ML NEB HHN SCH ×5 (04:19→21:04)
[2021-03-23] MEDS: ALPRAZOLAM 0.25 MG TABLET PO PRN ×2 (06:22→18:23)
[2021-03-23] MEDS: BLOOD SUGAR DIAGNOSTIC STRIP TEST SCH ×4 (07:38→20:51)
[2021-03-23] MEDS: INSULIN LISPRO 100 UNITS/ML SUBCUT SCH ×4 (07:39→20:51)
[2021-03-23] MEDS: FLUTICASONE PROPIONATE 50MCG/SPRAY BOTTLE BOTHNSTRLS SCH ×2 (09:00→17:58)
[2021-03-23] MEDS: FAMOTIDINE 20MG TABLET PO SCH ×2 (10:11→20:40)
[2021-03-23] MEDS: DOCUSATE SODIUM 100MG CAPSULE PO SCH ×2 (10:11→17:15)
[2021-03-23] MEDS: METFORMIN HCL 500MG TABLET PO SCH ×2 (10:11→17:16)
[2021-03-23] MEDS: AZATHIOPRINE 50MG TABLET PO SCH ×2 (10:12→17:15)
[2021-03-23] MEDS: METHYLPREDNISOLONE SOD SUCC 40 MG/ML VIAL IV SCH ×3 (10:12→17:15)
[2021-03-23] MEDS: ENOXAPARIN 30MG/0.3ML SYR SUBCUT SCH ×2 (10:13→20:41)
[2021-03-23] MEDS: INSULIN GLARGINE UD 100 UNITS/ML SYR SUBCUT SCH ×2 (10:17→21:54)
[2021-03-23] MEDS: HYDROCODONE/ACETAMINOPHEN 10/325MG TABLET PO PRN (10:23)
[2021-03-23] MEDS: ONDANSETRON HCL 4MG/2ML INJ IV PRN (10:23)
[2021-03-23] MEDS: FUROSEMIDE 40MG/4ML VIAL IVP SCH ×2 (10:30→17:15)
[2021-03-23 14:53] LABS: HEMATOCRIT. 34.1 % (36.0-48.0); HEMOGLOBIN. 10.3 g/dL (12.0-16.0); MEAN CORPUSCULAR HEMOGLOBIN 23.9 pg (28.0-32.0); MEAN CORPUSCULAR VOLUME 78.8 fL (81.0-99.0); MEAN PLATELET VOLUME 7.8 fl (7.4-10.4); PLATELET 359 x1000/uL (130-400); RED BLOOD CELL COUNT 4.33 mill/uL (4.2-5.4); RED CELL DISTRIBUTION WIDTH 17.3 % (11.6-14.6)
[2021-03-23 14:58] LABS: CHLORIDE 99 mEq/L (98-107)
[2021-03-23] MEDS: GUAIFENESIN/CODEINE 200-20MG/10ML UDC PO PRN (20:40)
[2021-03-24] VITALS (10 sets, daily range): BP systolic 93–148; BP diastolic 40–120
[2021-03-24] MEDS: IPRATROPIUM/ALBUTEROL 0.5-3(2.5)MG/3ML NEB HHN SCH ×6 (00:39→20:24)
[2021-03-24] MEDS: BLOOD SUGAR DIAGNOSTIC STRIP TEST SCH ×4 (07:12→21:00)
[2021-03-24] MEDS: FUROSEMIDE 40MG/4ML VIAL IVP SCH ×2 (07:35→17:25)
[2021-03-24] MEDS: INSULIN LISPRO 100 UNITS/ML SUBCUT SCH ×3 (08:00→18:20)
[2021-03-24] MEDS: DOCUSATE SODIUM 100MG CAPSULE PO SCH ×2 (08:59→17:27)
[2021-03-24] MEDS: METFORMIN HCL 500MG TABLET PO SCH ×2 (08:59→17:26)
[2021-03-24] MEDS: ENOXAPARIN 30MG/0.3ML SYR SUBCUT SCH (08:59)
[2021-03-24] MEDS: METHYLPREDNISOLONE SOD SUCC 40 MG/ML VIAL IV SCH ×3 (08:59→17:29)
[2021-03-24] MEDS: AZATHIOPRINE 50MG TABLET PO SCH ×2 (09:00→17:26)
[2021-03-24] MEDS: FAMOTIDINE 20MG TABLET PO SCH (09:00)
[2021-03-24] MEDS: INSULIN GLARGINE UD 100 UNITS/ML SYR SUBCUT SCH (10:02)
[2021-03-24] MEDS: ALPRAZOLAM 0.25 MG TABLET PO PRN (10:34)
[2021-03-24] MEDS: GUAIFENESIN/CODEINE 200-20MG/10ML UDC PO PRN (10:34)
[2021-03-24] MEDS ORDERED: METHYLPREDNISOLONE SOD SUCC 40 MG/ML VIAL ONE (17:29)
[2021-03-24 18:23] LABS: PLATELET ESTIMATE NORMAL
[2021-03-25] VITALS (11 sets, daily range): BP systolic 109–160; BP diastolic 57–88
[2021-03-25] MEDS: IPRATROPIUM/ALBUTEROL 0.5-3(2.5)MG/3ML NEB HHN SCH ×6 (00:19→21:51)
[2021-03-25] MEDS: ENOXAPARIN 30MG/0.3ML SYR SUBCUT SCH ×3 (00:19→21:16)
[2021-03-25] MEDS: FAMOTIDINE 20MG TABLET PO SCH ×3 (00:19→21:16)
[2021-03-25] MEDS: INSULIN LISPRO 100 UNITS/ML SUBCUT SCH ×5 (00:20→21:17)
[2021-03-25] MEDS: INSULIN GLARGINE UD 100 UNITS/ML SYR SUBCUT SCH ×3 (00:22→21:49)
[2021-03-25] MEDS: GUAIFENESIN/CODEINE 200-20MG/10ML UDC PO PRN ×2 (06:48→21:15)
[2021-03-25] MEDS: BLOOD SUGAR DIAGNOSTIC STRIP TEST SCH ×4 (07:30→21:15)
[2021-03-25] MEDS: METFORMIN HCL 500MG TABLET PO SCH ×2 (07:56→18:58)
[2021-03-25] MEDS: FUROSEMIDE 40MG/4ML VIAL IVP SCH ×2 (07:56→17:38)
[2021-03-25] MEDS: DOCUSATE SODIUM 100MG CAPSULE PO SCH ×2 (09:44→17:00)
[2021-03-25] MEDS: AZATHIOPRINE 50MG TABLET PO SCH ×2 (09:44→17:38)
[2021-03-25] MEDS: METHYLPREDNISOLONE SOD SUCC 40 MG/ML VIAL IV SCH ×3 (09:45→17:38)
[2021-03-25] MEDS ORDERED: ALPRAZOLAM 0.5 MG TABLET PO SCH (14:00)
[2021-03-25] MEDS: ALPRAZOLAM 0.5 MG TABLET PO PRN ×2 (14:13→21:16)
[2021-03-25] MEDS ORDERED: METHYLPREDNISOLONE SOD SUCC 40 MG/ML VIAL ONE (17:40)
[2021-03-25] MEDS: ONDANSETRON HCL 4MG/2ML INJ IV PRN (21:15)
[2021-03-26] VITALS (12 sets, daily range): BP systolic 90–137; BP diastolic 51–105
[2021-03-26] MEDS: IPRATROPIUM/ALBUTEROL 0.5-3(2.5)MG/3ML NEB HHN SCH ×6 (01:10→20:43)
[2021-03-26] MEDS: GUAIFENESIN/CODEINE 200-20MG/10ML UDC PO PRN ×2 (03:19→17:44)
[2021-03-26] MEDS: BLOOD SUGAR DIAGNOSTIC STRIP TEST SCH ×4 (07:36→21:44)
[2021-03-26] MEDS: INSULIN LISPRO 100 UNITS/ML SUBCUT SCH ×4 (08:00→21:44)
[2021-03-26] MEDS: ENOXAPARIN 30MG/0.3ML SYR SUBCUT SCH ×2 (08:24→21:42)
[2021-03-26] MEDS: FAMOTIDINE 20MG TABLET PO SCH ×2 (08:25→21:43)
[2021-03-26] MEDS: AZATHIOPRINE 50MG TABLET PO SCH ×2 (08:25→17:44)
[2021-03-26] MEDS: METHYLPREDNISOLONE SOD SUCC 40 MG/ML VIAL IV SCH ×3 (08:25→17:44)
[2021-03-26] MEDS: METFORMIN HCL 500MG TABLET PO SCH ×2 (08:25→17:44)
[2021-03-26] MEDS: FUROSEMIDE 40MG/4ML VIAL IVP SCH ×2 (08:25→17:44)
[2021-03-26] MEDS: DOCUSATE SODIUM 100MG CAPSULE PO SCH ×3 (08:26→16:48)
[2021-03-26] MEDS: INSULIN GLARGINE UD 100 UNITS/ML SYR SUBCUT SCH ×2 (10:52→21:43)
[2021-03-26] MEDS ORDERED: FUROSEMIDE 40MG/4ML VIAL IVP SCH (13:30)
[2021-03-26] MEDS: ALPRAZOLAM 0.25 MG TABLET PO PRN ×2 (14:05→23:40)
[2021-03-26] MEDS: ACETAMINOPHEN 325MG TABLET PO PRN (17:44)
[2021-03-27] VITALS (10 sets, daily range): BP systolic 101–147; BP diastolic 51–96
[2021-03-27] MEDS: IPRATROPIUM/ALBUTEROL 0.5-3(2.5)MG/3ML NEB HHN SCH ×6 (00:05→20:14)
[2021-03-27] MEDS: BLOOD SUGAR DIAGNOSTIC STRIP TEST SCH ×4 (07:24→21:00)
[2021-03-27] MEDS: INSULIN LISPRO 100 UNITS/ML SUBCUT SCH ×4 (08:00→22:02)
[2021-03-27] MEDS: ENOXAPARIN 30MG/0.3ML SYR SUBCUT SCH ×2 (08:28→22:05)
[2021-03-27] MEDS: AZATHIOPRINE 50MG TABLET PO SCH ×2 (08:29→17:36)
[2021-03-27] MEDS: METHYLPREDNISOLONE SOD SUCC 40 MG/ML VIAL IV SCH ×3 (08:29→17:36)
[2021-03-27] MEDS: METFORMIN HCL 500MG TABLET PO SCH ×2 (08:29→17:36)
[2021-03-27] MEDS: FUROSEMIDE 40MG/4ML VIAL IVP SCH ×2 (08:29→17:35)
[2021-03-27] MEDS: FAMOTIDINE 20MG TABLET PO SCH ×2 (08:29→22:06)
[2021-03-27] MEDS: DOCUSATE SODIUM 100MG CAPSULE PO SCH ×2 (08:29→16:18)
[2021-03-27] MEDS: GUAIFENESIN/CODEINE 200-20MG/10ML UDC PO PRN (09:50)
[2021-03-27] MEDS: ALPRAZOLAM 0.25 MG TABLET PO PRN ×2 (09:50→22:05)
[2021-03-27] MEDS: INSULIN GLARGINE UD 100 UNITS/ML SYR SUBCUT SCH ×2 (09:52→22:04)
[2021-03-27] MEDS: ACETAMINOPHEN 325MG TABLET PO PRN (22:06)
[2021-03-28] VITALS (10 sets, daily range): BP systolic 95–128; BP diastolic 35–85
[2021-03-28] MEDS: IPRATROPIUM/ALBUTEROL 0.5-3(2.5)MG/3ML NEB HHN SCH ×6 (00:16→20:26)
[2021-03-28] MEDS: BLOOD SUGAR DIAGNOSTIC STRIP TEST SCH ×4 (07:52→21:32)
[2021-03-28] MEDS: INSULIN LISPRO 100 UNITS/ML SUBCUT SCH ×4 (08:00→21:48)
[2021-03-28] MEDS: FUROSEMIDE 40MG/4ML VIAL IVP SCH ×2 (08:47→17:27)
[2021-03-28] MEDS: METHYLPREDNISOLONE SOD SUCC 40 MG/ML VIAL IV SCH ×3 (08:47→17:28)
[2021-03-28] MEDS: GUAIFENESIN/CODEINE 200-20MG/10ML UDC PO PRN ×2 (08:47→21:37)
[2021-03-28] MEDS: METFORMIN HCL 500MG TABLET PO SCH ×2 (08:48→17:28)
[2021-03-28] MEDS: ENOXAPARIN 30MG/0.3ML SYR SUBCUT SCH ×2 (08:48→21:36)
[2021-03-28] MEDS: ALPRAZOLAM 0.25 MG TABLET PO PRN ×2 (08:48→16:03)
[2021-03-28] MEDS: AZATHIOPRINE 50MG TABLET PO SCH ×2 (08:48→17:28)
[2021-03-28] MEDS: FAMOTIDINE 20MG TABLET PO SCH ×2 (08:48→21:33)
[2021-03-28] MEDS: DOCUSATE SODIUM 100MG CAPSULE PO SCH ×2 (08:49→17:00)
[2021-03-28] MEDS: INSULIN GLARGINE UD 100 UNITS/ML SYR SUBCUT SCH ×2 (09:01→23:12)
[2021-03-28] MEDS: KETOROLAC 15MG/ML VIAL IV PRN (10:52)
[2021-03-29] VITALS (11 sets, daily range): BP systolic 101–142; BP diastolic 53–75
[2021-03-29] MEDS: IPRATROPIUM/ALBUTEROL 0.5-3(2.5)MG/3ML NEB HHN SCH ×6 (00:10→20:09)
[2021-03-29] MEDS: KETOROLAC 15MG/ML VIAL IV PRN (05:34)
[2021-03-29] MEDS: GUAIFENESIN/CODEINE 200-20MG/10ML UDC PO PRN (05:40)
[2021-03-29] MEDS: FUROSEMIDE 40MG/4ML VIAL IVP SCH ×2 (06:59→17:01)
[2021-03-29] MEDS: BLOOD SUGAR DIAGNOSTIC STRIP TEST SCH ×4 (07:30→21:00)
[2021-03-29] MEDS: INSULIN LISPRO 100 UNITS/ML SUBCUT SCH ×4 (08:00→21:31)
[2021-03-29] MEDS: FAMOTIDINE 20MG TABLET PO SCH ×2 (08:38→21:31)
[2021-03-29] MEDS: AZATHIOPRINE 50MG TABLET PO SCH ×2 (08:38→17:02)
[2021-03-29] MEDS: DOCUSATE SODIUM 100MG CAPSULE PO SCH ×2 (08:38→17:02)
[2021-03-29] MEDS: METFORMIN HCL 500MG TABLET PO SCH ×2 (08:38→17:02)
[2021-03-29] MEDS: ENOXAPARIN 30MG/0.3ML SYR SUBCUT SCH ×2 (08:39→21:31)
[2021-03-29] MEDS: METHYLPREDNISOLONE SOD SUCC 40 MG/ML VIAL IV SCH ×3 (08:43→17:02)
[2021-03-29] MEDS: ALPRAZOLAM 0.25 MG TABLET PO PRN ×2 (09:07→18:52)
[2021-03-29] MEDS: INSULIN GLARGINE UD 100 UNITS/ML SYR SUBCUT SCH ×2 (10:15→21:32)
[2021-03-29 10:33] LABS: BASOPHILS % 0.6 % (0.0-2.0); EOSINOPHILS % 3.9 % (0.0-5.0); HEMATOCRIT. 35.6 % (36.0-48.0); HEMOGLOBIN. 11.1 g/dL (12.0-16.0); LYMPHOCYTES % 18.3 % (20.0-50.0); MEAN CORPUSCULAR HEMOGLOBIN 25.1 pg (28.0-32.0); MEAN CORPUSCULAR VOLUME 80.6 fL (81.0-99.0); MEAN PLATELET VOLUME 8.2 fl (7.4-10.4); NEUTROPHILS % 72.2 % (40.0-76.0); PLATELET 336 x1000/uL (130-400); RED BLOOD CELL COUNT 4.42 mill/uL (4.2-5.4); RED CELL DISTRIBUTION WIDTH 20.3 % (11.6-14.6)
[2021-03-29 10:44] LABS: CHLORIDE 94 mEq/L (98-107)
[2021-03-29] MEDS: ACETAMINOPHEN 325MG TABLET PO PRN (17:37)
[2021-03-30] VITALS (12 sets, daily range): BP systolic 94–152; BP diastolic 50–86
[2021-03-30] MEDS: IPRATROPIUM/ALBUTEROL 0.5-3(2.5)MG/3ML NEB HHN SCH ×6 (00:23→15:55)
[2021-03-30 07:21] LABS: CHLORIDE 95 mEq/L (98-107)
[2021-03-30 07:34] LABS: BASOPHILS % 0.6 % (0.0-2.0); EOSINOPHILS % 2.9 % (0.0-5.0); HEMATOCRIT. 34.2 % (36.0-48.0); HEMOGLOBIN. 10.5 g/dL (12.0-16.0); MEAN CORPUSCULAR HEMOGLOBIN 24.9 pg (28.0-32.0); MEAN CORPUSCULAR VOLUME 81.2 fL (81.0-99.0); MEAN PLATELET VOLUME 8.3 fl (7.4-10.4); MONOCYTES % 4.5 % (2.0-8.0); PLATELET 279 x1000/uL (130-400); RED BLOOD CELL COUNT 4.21 mill/uL (4.2-5.4); RED CELL DISTRIBUTION WIDTH 19.1 % (11.6-14.6)
[2021-03-30] MEDS: BLOOD SUGAR DIAGNOSTIC STRIP TEST SCH ×4 (07:49→21:00)
[2021-03-30] MEDS: FUROSEMIDE 40MG/4ML VIAL IVP SCH ×2 (07:50→17:36)
[2021-03-30] MEDS: METFORMIN HCL 500MG TABLET PO SCH ×2 (07:50→17:37)
[2021-03-30] MEDS: INSULIN LISPRO 100 UNITS/ML SUBCUT SCH ×4 (07:55→21:00)
[2021-03-30] MEDS: AZATHIOPRINE 50MG TABLET PO SCH ×2 (08:55→17:37)
[2021-03-30] MEDS: ENOXAPARIN 30MG/0.3ML SYR SUBCUT SCH ×2 (08:55→21:50)
[2021-03-30] MEDS: FAMOTIDINE 20MG TABLET PO SCH ×2 (08:55→21:50)
[2021-03-30] MEDS: METHYLPREDNISOLONE SOD SUCC 40 MG/ML VIAL IV SCH ×3 (08:55→17:36)
[2021-03-30] MEDS: ALPRAZOLAM 0.25 MG TABLET PO PRN (08:56)
[2021-03-30] MEDS: INSULIN GLARGINE UD 100 UNITS/ML SYR SUBCUT SCH ×2 (09:53→21:51)
[2021-03-30] MEDS ORDERED: POTASSIUM CHLORIDE 20MEQ TABLET SR PO NR (10:45)
[2021-03-30] MEDS ORDERED: LACTATED RINGERS 1,000 ML IV ONE (21:00)
[2021-03-30] MEDS: ONDANSETRON HCL 4MG/2ML INJ IV PRN (21:50)
[2021-03-31] VITALS (12 sets, daily range): BP systolic 83–170; BP diastolic 53–76
[2021-03-31] MEDS: IPRATROPIUM/ALBUTEROL 0.5-3(2.5)MG/3ML NEB HHN SCH ×6 (00:27→20:00)
[2021-03-31] MEDS: ONDANSETRON HCL 4MG/2ML INJ IV PRN ×3 (02:54→18:56)
[2021-03-31 07:03] LABS: BASOPHILS % 0.6 % (0.0-2.0); EOSINOPHILS % 3.1 % (0.0-5.0); HEMATOCRIT. 32.9 % (36.0-48.0); HEMOGLOBIN. 10.2 g/dL (12.0-16.0); LYMPHOCYTES % 18.3 % (20.0-50.0); MEAN CORPUSCULAR HEMOGLOBIN 25.1 pg (28.0-32.0); MEAN CORPUSCULAR VOLUME 81.1 fL (81.0-99.0); MEAN PLATELET VOLUME 8.1 fl (7.4-10.4); MONOCYTES % 4.8 % (2.0-8.0); NEUTROPHILS % 73.2 % (40.0-76.0); PLATELET 267 x1000/uL (130-400); RED BLOOD CELL COUNT 4.06 mill/uL (4.2-5.4); RED CELL DISTRIBUTION WIDTH 20.5 % (11.6-14.6)
[2021-03-31 07:09] LABS: CHLORIDE 96 mEq/L (98-107)
[2021-03-31] MEDS: FUROSEMIDE 40MG/4ML VIAL IVP SCH ×2 (07:15→17:15)
[2021-03-31] MEDS: BLOOD SUGAR DIAGNOSTIC STRIP TEST SCH ×4 (07:30→20:49)
[2021-03-31] MEDS: METFORMIN HCL 500MG TABLET PO SCH ×2 (08:00→18:56)
[2021-03-31] MEDS: INSULIN LISPRO 100 UNITS/ML SUBCUT SCH ×4 (08:00→20:50)
[2021-03-31] MEDS: AZATHIOPRINE 50MG TABLET PO SCH ×2 (09:00→18:55)
[2021-03-31] MEDS: FAMOTIDINE 20MG TABLET PO SCH ×2 (09:00→20:49)
[2021-03-31] MEDS: METHYLPREDNISOLONE SOD SUCC 40 MG/ML VIAL IV SCH ×3 (09:40→18:55)
[2021-03-31] MEDS: ENOXAPARIN 30MG/0.3ML SYR SUBCUT SCH ×2 (09:41→20:49)
[2021-03-31] MEDS: INSULIN GLARGINE UD 100 UNITS/ML SYR SUBCUT SCH ×2 (09:42→20:50)
[2021-03-31] MEDS ORDERED: LACTATED RINGERS 1,000 ML IV SCH (12:00)
[2021-03-31] MEDS: ALPRAZOLAM 0.25 MG TABLET PO PRN ×2 (13:27→22:05)
[2021-03-31] MEDS: GUAIFENESIN/CODEINE 200-20MG/10ML UDC PO PRN (20:48)
[2021-04-01] VITALS (10 sets, daily range): BP systolic 86–123; BP diastolic 57–84
[2021-04-01] MEDS: IPRATROPIUM/ALBUTEROL 0.5-3(2.5)MG/3ML NEB HHN SCH ×6 (04:00→19:53)
[2021-04-01] MEDS: INSULIN LISPRO 100 UNITS/ML SUBCUT SCH ×4 (07:46→21:17)
[2021-04-01] MEDS: BLOOD SUGAR DIAGNOSTIC STRIP TEST SCH ×4 (07:46→21:10)
[2021-04-01] MEDS: METHYLPREDNISOLONE SOD SUCC 40 MG/ML VIAL IV SCH ×3 (10:16→18:01)
[2021-04-01] MEDS: FUROSEMIDE 40MG/4ML VIAL IVP SCH ×2 (10:16→18:01)
[2021-04-01] MEDS: AZATHIOPRINE 50MG TABLET PO SCH ×2 (10:17→18:01)
[2021-04-01] MEDS: METFORMIN HCL 500MG TABLET PO SCH ×2 (10:17→18:01)
[2021-04-01] MEDS: ALPRAZOLAM 0.25 MG TABLET PO PRN ×2 (10:17→21:10)
[2021-04-01] MEDS: FAMOTIDINE 20MG TABLET PO SCH ×2 (10:18→21:10)
[2021-04-01] MEDS: INSULIN GLARGINE UD 100 UNITS/ML SYR SUBCUT SCH ×2 (11:32→21:17)
[2021-04-01] MEDS: ENOXAPARIN 30MG/0.3ML SYR SUBCUT SCH ×2 (11:32→21:10)
[2021-04-01] MEDS: BUSPIRONE HCL 5MG TABLET PO SCH ×2 (16:36→21:10)
[2021-04-01] MEDS: KETOROLAC 15MG/ML VIAL IV PRN (16:36)
[2021-04-01] MEDS: GUAIFENESIN/CODEINE 200-20MG/10ML UDC PO PRN ×2 (16:36→23:31)
[2021-04-02] VITALS (12 sets, daily range): BP systolic 107–137; BP diastolic 47–87
[2021-04-02] MEDS: IPRATROPIUM/ALBUTEROL 0.5-3(2.5)MG/3ML NEB HHN SCH ×6 (00:24→20:21)
[2021-04-02] MEDS: GUAIFENESIN/CODEINE 200-20MG/10ML UDC PO PRN ×4 (07:00→21:57)
[2021-04-02] MEDS: BLOOD SUGAR DIAGNOSTIC STRIP TEST SCH ×4 (07:34→21:11)
[2021-04-02] MEDS: INSULIN LISPRO 100 UNITS/ML SUBCUT SCH ×4 (07:35→21:12)
[2021-04-02] MEDS: METFORMIN HCL 500MG TABLET PO SCH ×2 (08:56→17:15)
[2021-04-02] MEDS: FUROSEMIDE 40MG/4ML VIAL IVP SCH ×2 (08:56→17:15)
[2021-04-02] MEDS: METHYLPREDNISOLONE SOD SUCC 40 MG/ML VIAL IV SCH ×3 (08:57→17:15)
[2021-04-02] MEDS: AZATHIOPRINE 50MG TABLET PO SCH ×2 (08:57→17:15)
[2021-04-02] MEDS: FAMOTIDINE 20MG TABLET PO SCH ×2 (08:58→21:10)
[2021-04-02] MEDS: BUSPIRONE HCL 5MG TABLET PO SCH ×2 (08:58→21:10)
[2021-04-02] MEDS: ENOXAPARIN 30MG/0.3ML SYR SUBCUT SCH ×2 (08:58→21:11)
[2021-04-02] MEDS: ALPRAZOLAM 0.25 MG TABLET PO PRN ×2 (08:58→17:15)
[2021-04-02] MEDS: INSULIN GLARGINE UD 100 UNITS/ML SYR SUBCUT SCH ×2 (10:18→21:12)
[2021-04-02] MEDS: KETOROLAC 15MG/ML VIAL IV PRN (15:43)
[2021-04-03] VITALS (12 sets, daily range): BP systolic 107–140; BP diastolic 62–84
[2021-04-03] MEDS: IPRATROPIUM/ALBUTEROL 0.5-3(2.5)MG/3ML NEB HHN SCH ×6 (00:26→21:13)
[2021-04-03] MEDS: KETOROLAC 15MG/ML VIAL IV PRN ×3 (01:29→21:32)
[2021-04-03] MEDS: ALPRAZOLAM 0.25 MG TABLET PO PRN ×2 (04:36→21:33)
[2021-04-03] MEDS: INSULIN LISPRO 100 UNITS/ML SUBCUT SCH ×4 (08:00→21:42)
[2021-04-03] MEDS: BLOOD SUGAR DIAGNOSTIC STRIP TEST SCH ×4 (08:13→21:33)
[2021-04-03] MEDS: ENOXAPARIN 30MG/0.3ML SYR SUBCUT SCH ×2 (08:15→21:32)
[2021-04-03] MEDS: AZATHIOPRINE 50MG TABLET PO SCH ×2 (08:16→17:32)
[2021-04-03] MEDS: METHYLPREDNISOLONE SOD SUCC 40 MG/ML VIAL IV SCH ×3 (08:16→17:32)
[2021-04-03] MEDS: FAMOTIDINE 20MG TABLET PO SCH ×2 (08:16→21:33)
[2021-04-03] MEDS: METFORMIN HCL 500MG TABLET PO SCH ×2 (08:17→17:33)
[2021-04-03] MEDS: BUSPIRONE HCL 5MG TABLET PO SCH ×2 (08:17→21:33)
[2021-04-03] MEDS: FUROSEMIDE 40MG/4ML VIAL IVP SCH ×2 (08:17→17:32)
[2021-04-03] MEDS: GUAIFENESIN/CODEINE 200-20MG/10ML UDC PO PRN (09:22)
[2021-04-03] MEDS: INSULIN GLARGINE UD 100 UNITS/ML SYR SUBCUT SCH ×2 (09:24→21:59)
[2021-04-04] VITALS (16 sets, daily range): BP systolic 109–149; BP diastolic 44–97
[2021-04-04] MEDS: GUAIFENESIN/CODEINE 200-20MG/10ML UDC PO PRN ×2 (00:56→09:03)
[2021-04-04] MEDS: IPRATROPIUM/ALBUTEROL 0.5-3(2.5)MG/3ML NEB HHN SCH ×6 (01:16→20:47)
[2021-04-04 07:01] LABS: CHLORIDE 96 mEq/L (98-107)
[2021-04-04 07:11] LABS: BASOPHILS % 0.4 % (0.0-2.0); EOSINOPHILS % 2.6 % (0.0-5.0); HEMATOCRIT. 31.7 % (36.0-48.0); HEMOGLOBIN. 10.2 g/dL (12.0-16.0); LYMPHOCYTES % 13.3 % (20.0-50.0); MEAN CORPUSCULAR HEMOGLOBIN 26.2 pg (28.0-32.0); MEAN CORPUSCULAR VOLUME 81.7 fL (81.0-99.0); MEAN PLATELET VOLUME 8.2 fl (7.4-10.4); MONOCYTES % 4.6 % (2.0-8.0); NEUTROPHILS % 79.1 % (40.0-76.0); PLATELET 296 x1000/uL (130-400); RED BLOOD CELL COUNT 3.88 mill/uL (4.2-5.4); RED CELL DISTRIBUTION WIDTH 22.6 % (11.6-14.6)
[2021-04-04] MEDS: INSULIN LISPRO 100 UNITS/ML SUBCUT SCH ×4 (08:00→21:00)
[2021-04-04] MEDS: BLOOD SUGAR DIAGNOSTIC STRIP TEST SCH ×4 (08:12→21:27)
[2021-04-04] MEDS: ALPRAZOLAM 0.25 MG TABLET PO PRN ×2 (09:03→19:30)
[2021-04-04] MEDS: BUSPIRONE HCL 5MG TABLET PO SCH ×2 (09:05→21:25)
[2021-04-04] MEDS: ENOXAPARIN 30MG/0.3ML SYR SUBCUT SCH ×2 (09:05→21:25)
[2021-04-04] MEDS: METFORMIN HCL 500MG TABLET PO SCH ×2 (09:05→17:13)
[2021-04-04] MEDS: FAMOTIDINE 20MG TABLET PO SCH ×2 (09:05→21:25)
[2021-04-04] MEDS: AZATHIOPRINE 50MG TABLET PO SCH ×2 (09:05→17:05)
[2021-04-04] MEDS: METHYLPREDNISOLONE SOD SUCC 40 MG/ML VIAL IV SCH ×3 (09:06→17:04)
[2021-04-04] MEDS ORDERED: POTASSIUM CHLORIDE 20MEQ TABLET SR PO NR (10:45)
[2021-04-04] MEDS: FUROSEMIDE 40MG/4ML VIAL IVP SCH ×2 (10:59→17:04)
[2021-04-04] MEDS: INSULIN GLARGINE UD 100 UNITS/ML SYR SUBCUT SCH ×2 (11:00→21:27)
[2021-04-04] MEDS: KETOROLAC 15MG/ML VIAL IV PRN (12:38)
[2021-04-04 15:20] LABS: PLATELET ESTIMATE NORMAL
[2021-04-05] VITALS (10 sets, daily range): BP systolic 102–129; BP diastolic 63–80
[2021-04-05] MEDS: IPRATROPIUM/ALBUTEROL 0.5-3(2.5)MG/3ML NEB HHN SCH ×6 (01:00→20:46)
[2021-04-05] MEDS: GUAIFENESIN/CODEINE 200-20MG/10ML UDC PO PRN (04:25)
[2021-04-05] MEDS: ALPRAZOLAM 0.25 MG TABLET PO PRN (04:57)
[2021-04-05] MEDS: INSULIN LISPRO 100 UNITS/ML SUBCUT SCH ×4 (07:48→21:06)
[2021-04-05] MEDS: BLOOD SUGAR DIAGNOSTIC STRIP TEST SCH ×4 (07:48→20:39)
[2021-04-05] MEDS: FUROSEMIDE 40MG/4ML VIAL IVP SCH ×2 (07:59→17:49)
[2021-04-05] MEDS: METHYLPREDNISOLONE SOD SUCC 40 MG/ML VIAL IV SCH ×3 (08:00→17:49)
[2021-04-05] MEDS: AZATHIOPRINE 50MG TABLET PO SCH ×2 (08:00→17:49)
[2021-04-05] MEDS: FAMOTIDINE 20MG TABLET PO SCH ×2 (08:01→21:07)
[2021-04-05] MEDS: BUSPIRONE HCL 5MG TABLET PO SCH ×2 (08:01→21:05)
[2021-04-05] MEDS: ENOXAPARIN 30MG/0.3ML SYR SUBCUT SCH ×2 (08:01→21:07)
[2021-04-05] MEDS: METFORMIN HCL 500MG TABLET PO SCH ×2 (08:01→18:13)
[2021-04-05] MEDS: ACETAMINOPHEN 325MG TABLET PO PRN (10:08)
[2021-04-05] MEDS: INSULIN GLARGINE UD 100 UNITS/ML SYR SUBCUT SCH ×2 (10:09→21:07)
[2021-04-05] MEDS: KETOROLAC 15MG/ML VIAL IV PRN ×3 (11:23→23:29)
[2021-04-05] MEDS ORDERED: ALPRAZOLAM 0.5 MG TABLET PO PRN (19:01)
[2021-04-06] VITALS (8 sets, daily range): BP systolic 93–119; BP diastolic 6–74
[2021-04-06] MEDS: IPRATROPIUM/ALBUTEROL 0.5-3(2.5)MG/3ML NEB HHN SCH ×6 (02:09→20:00)
[2021-04-06] MEDS: GUAIFENESIN/CODEINE 200-20MG/10ML UDC PO PRN ×2 (05:13→10:37)
[2021-04-06] MEDS: INSULIN LISPRO 100 UNITS/ML SUBCUT SCH ×4 (07:41→21:09)
[2021-04-06] MEDS: BLOOD SUGAR DIAGNOSTIC STRIP TEST SCH ×4 (07:41→21:10)
[2021-04-06] MEDS: FUROSEMIDE 40MG/4ML VIAL IVP SCH ×2 (08:11→17:09)
[2021-04-06] MEDS: METFORMIN HCL 500MG TABLET PO SCH ×2 (08:11→17:09)
[2021-04-06] MEDS: FAMOTIDINE 20MG TABLET PO SCH ×2 (09:05→21:10)
[2021-04-06] MEDS: BUSPIRONE HCL 5MG TABLET PO SCH (09:05)
[2021-04-06] MEDS: ENOXAPARIN 30MG/0.3ML SYR SUBCUT SCH ×2 (09:05→21:10)
[2021-04-06] MEDS: METHYLPREDNISOLONE SOD SUCC 40 MG/ML VIAL IV SCH ×3 (09:07→17:09)
[2021-04-06] MEDS: INSULIN GLARGINE UD 100 UNITS/ML SYR SUBCUT SCH ×2 (10:00→21:10)
[2021-04-06] MEDS: KETOROLAC 15MG/ML VIAL IV PRN ×2 (10:37→23:36)
[2021-04-06] MEDS: ALPRAZOLAM 0.25 MG TABLET PO PRN (17:21)
[2021-04-07] VITALS (8 sets, daily range): BP systolic 96–134; BP diastolic 42–89
[2021-04-07] MEDS: IPRATROPIUM/ALBUTEROL 0.5-3(2.5)MG/3ML NEB HHN SCH ×5 (04:00→21:19)
[2021-04-07] MEDS: ALPRAZOLAM 0.25 MG TABLET PO PRN ×2 (04:39→18:23)
[2021-04-07] MEDS: BLOOD SUGAR DIAGNOSTIC STRIP TEST SCH ×4 (07:30→20:17)
[2021-04-07] MEDS: INSULIN LISPRO 100 UNITS/ML SUBCUT SCH ×4 (08:00→21:09)
[2021-04-07] MEDS: METHYLPREDNISOLONE SOD SUCC 40 MG/ML VIAL IV SCH ×3 (08:49→18:21)
[2021-04-07] MEDS: FUROSEMIDE 40MG/4ML VIAL IVP SCH ×2 (08:49→18:22)
[2021-04-07] MEDS: METFORMIN HCL 500MG TABLET PO SCH ×2 (08:50→18:22)
[2021-04-07] MEDS: ENOXAPARIN 30MG/0.3ML SYR SUBCUT SCH ×2 (08:50→20:13)
[2021-04-07] MEDS: FAMOTIDINE 20MG TABLET PO SCH ×2 (08:50→20:12)
[2021-04-07] MEDS: INSULIN GLARGINE UD 100 UNITS/ML SYR SUBCUT SCH ×2 (10:49→21:09)
[2021-04-07] MEDS: ACETAMINOPHEN 325MG TABLET PO PRN (13:13)
[2021-04-07] MEDS: KETOROLAC 15MG/ML VIAL IV PRN (22:49)
[2021-04-08] VITALS (8 sets, daily range): BP systolic 111–127; BP diastolic 73–89
[2021-04-08] MEDS: IPRATROPIUM/ALBUTEROL 0.5-3(2.5)MG/3ML NEB HHN SCH ×6 (00:24→20:22)
[2021-04-08] MEDS: ALPRAZOLAM 0.25 MG TABLET PO PRN ×2 (05:23→16:13)
[2021-04-08] MEDS: FUROSEMIDE 40MG/4ML VIAL IVP SCH ×2 (05:46→18:27)
[2021-04-08] MEDS: BLOOD SUGAR DIAGNOSTIC STRIP TEST SCH ×4 (07:30→21:42)
[2021-04-08] MEDS: INSULIN LISPRO 100 UNITS/ML SUBCUT SCH ×4 (08:00→21:00)
[2021-04-08] MEDS: KETOROLAC 15MG/ML VIAL IV PRN (08:47)
[2021-04-08] MEDS: METHYLPREDNISOLONE SOD SUCC 40 MG/ML VIAL IV SCH (08:48)
[2021-04-08] MEDS: METFORMIN HCL 500MG TABLET PO SCH ×2 (08:48→18:22)
[2021-04-08] MEDS: GUAIFENESIN/CODEINE 200-20MG/10ML UDC PO PRN ×2 (09:04→18:26)
[2021-04-08] MEDS: FAMOTIDINE 20MG TABLET PO SCH ×2 (09:04→21:41)
[2021-04-08] MEDS: ENOXAPARIN 30MG/0.3ML SYR SUBCUT SCH ×2 (09:05→21:41)
[2021-04-08] MEDS: INSULIN GLARGINE UD 100 UNITS/ML SYR SUBCUT SCH ×2 (11:14→21:42)
[2021-04-09] VITALS (11 sets, daily range): BP systolic 94–139; BP diastolic 48–87
[2021-04-09] MEDS: KETOROLAC 15MG/ML VIAL IV PRN ×3 (00:10→17:57)
[2021-04-09] MEDS: IPRATROPIUM/ALBUTEROL 0.5-3(2.5)MG/3ML NEB HHN SCH ×5 (00:17→21:30)
[2021-04-09 06:55] LABS: BASOPHILS % 0.4 % (0.0-2.0); EOSINOPHILS % 1.7 % (0.0-5.0); HEMATOCRIT. 32.4 % (36.0-48.0); HEMOGLOBIN. 10.4 g/dL (12.0-16.0); LYMPHOCYTES % 16.2 % (20.0-50.0); MEAN CORPUSCULAR HEMOGLOBIN 26.2 pg (28.0-32.0); MEAN CORPUSCULAR VOLUME 81.7 fL (81.0-99.0); MEAN PLATELET VOLUME 7.6 fl (7.4-10.4); MONOCYTES % 4.9 % (2.0-8.0); NEUTROPHILS % 76.8 % (40.0-76.0); PLATELET 239 x1000/uL (130-400); RED BLOOD CELL COUNT 3.97 mill/uL (4.2-5.4); RED CELL DISTRIBUTION WIDTH 23.5 % (11.6-14.6)
[2021-04-09 07:00] LABS: CHLORIDE 93 mEq/L (98-107)
[2021-04-09] MEDS: BLOOD SUGAR DIAGNOSTIC STRIP TEST SCH ×4 (07:30→21:26)
[2021-04-09] MEDS: METFORMIN HCL 500MG TABLET PO SCH ×3 (08:00→17:55)
[2021-04-09] MEDS: INSULIN LISPRO 100 UNITS/ML SUBCUT SCH ×4 (08:00→21:00)
[2021-04-09] MEDS: FUROSEMIDE 40MG/4ML VIAL IVP SCH ×2 (08:31→17:55)
[2021-04-09] MEDS: ENOXAPARIN 30MG/0.3ML SYR SUBCUT SCH ×2 (08:31→21:36)
[2021-04-09] MEDS: POTASSIUM CHLORIDE 20MEQ TABLET SR PO SCH ×2 (08:41→09:00)
[2021-04-09] MEDS: FAMOTIDINE 20MG TABLET PO SCH ×3 (08:46→21:37)
[2021-04-09] MEDS: INSULIN GLARGINE UD 100 UNITS/ML SYR SUBCUT SCH (10:25)
[2021-04-09] MEDS: ALPRAZOLAM 0.25 MG TABLET PO PRN ×2 (11:46→21:53)
[2021-04-09] MEDS: GUAIFENESIN/CODEINE 200-20MG/10ML UDC PO PRN (21:53)
[2021-04-10] VITALS (11 sets, daily range): BP systolic 93–117; BP diastolic 54–81
[2021-04-10] MEDS: IPRATROPIUM/ALBUTEROL 0.5-3(2.5)MG/3ML NEB HHN SCH ×7 (01:30→21:10)
[2021-04-10] MEDS: KETOROLAC 15MG/ML VIAL IV PRN ×4 (01:42→22:54)
[2021-04-10] MEDS: ALPRAZOLAM 0.25 MG TABLET PO PRN (05:40)
[2021-04-10] MEDS: GUAIFENESIN/CODEINE 200-20MG/10ML UDC PO PRN ×2 (05:43→19:35)
[2021-04-10] MEDS: INSULIN LISPRO 100 UNITS/ML SUBCUT SCH ×2 (08:00→13:00)
[2021-04-10] MEDS: METFORMIN HCL 500MG TABLET PO SCH (08:00)
[2021-04-10] MEDS: BLOOD SUGAR DIAGNOSTIC STRIP TEST SCH ×2 (08:17→12:30)
[2021-04-10] MEDS: FUROSEMIDE 40MG/4ML VIAL IVP SCH ×2 (08:18→15:30)
[2021-04-10] MEDS: POTASSIUM CHLORIDE 20MEQ TABLET SR PO SCH (08:18)
[2021-04-10] MEDS: ENOXAPARIN 30MG/0.3ML SYR SUBCUT SCH ×2 (08:18→20:33)
[2021-04-10] MEDS: FAMOTIDINE 20MG TABLET PO SCH ×2 (08:32→20:33)
[2021-04-10] MEDS: ACETAMINOPHEN 325MG TABLET PO PRN (19:39)
[2021-04-10] MEDS: ALPRAZOLAM 0.5 MG TABLET PO PRN (22:59)
[2021-04-11] VITALS (12 sets, daily range): BP systolic 88–118; BP diastolic 44–67
[2021-04-11] MEDS: IPRATROPIUM/ALBUTEROL 0.5-3(2.5)MG/3ML NEB HHN SCH ×4 (01:05→16:58)
[2021-04-11] MEDS: GUAIFENESIN/CODEINE 200-20MG/10ML UDC PO PRN (03:10)
[2021-04-11] MEDS: KETOROLAC 15MG/ML VIAL IV PRN ×2 (06:52→20:38)
[2021-04-11] MEDS: ALPRAZOLAM 0.5 MG TABLET PO PRN ×2 (06:59→15:01)
[2021-04-11] MEDS: FAMOTIDINE 20MG TABLET PO SCH ×2 (09:26→20:38)
[2021-04-11] MEDS: POTASSIUM CHLORIDE 20MEQ TABLET SR PO SCH (09:27)
[2021-04-11] MEDS: ENOXAPARIN 30MG/0.3ML SYR SUBCUT SCH ×2 (09:28→20:39)
[2021-04-11] MEDS: FUROSEMIDE 40MG/4ML VIAL IVP SCH (09:40)
[2021-04-11] MEDS: AZATHIOPRINE 50MG TABLET PO SCH ×2 (15:06→17:00)
[2021-04-11] MEDS: ACETAMINOPHEN 325MG TABLET PO PRN ×2 (16:22→23:45)
[2021-04-11 18:25] LABS: BASOPHILS % 0.6 % (0.0-2.0); EOSINOPHILS % 0.3 % (0.0-5.0); HEMATOCRIT. 31.3 % (36.0-48.0); HEMOGLOBIN. 10.3 g/dL (12.0-16.0); MEAN CORPUSCULAR HEMOGLOBIN 26.5 pg (28.0-32.0); MEAN CORPUSCULAR VOLUME 80.5 fL (81.0-99.0); MEAN PLATELET VOLUME 7.6 fl (7.4-10.4); MONOCYTES % 4.9 % (2.0-8.0); NEUTROPHILS % 82.2 % (40.0-76.0); PLATELET 239 x1000/uL (130-400); RED BLOOD CELL COUNT 3.89 mill/uL (4.2-5.4); RED CELL DISTRIBUTION WIDTH 23.8 % (11.6-14.6)
[2021-04-11] MEDS: CEFEPIME 2,000 MG in DEXT 5% WATER 100 ML IV SCH (20:38)
[2021-04-11] MEDS: ONDANSETRON HCL 4MG/2ML INJ IV PRN (23:45)
[2021-04-12] VITALS (13 sets, daily range): BP systolic 83–118; BP diastolic 37–76
[2021-04-12] MEDS: HYDROCODONE/ACETAMINOPHEN 10/325MG TABLET PO PRN ×3 (00:57→22:18)
[2021-04-12] MEDS: IPRATROPIUM/ALBUTEROL 0.5-3(2.5)MG/3ML NEB HHN SCH ×6 (04:00→20:32)
[2021-04-12] MEDS: CEFEPIME 2,000 MG in DEXT 5% WATER 100 ML IV SCH ×3 (05:26→20:23)
[2021-04-12] MEDS: POTASSIUM CHLORIDE 20MEQ TABLET SR PO SCH (08:34)
[2021-04-12] MEDS: FAMOTIDINE 20MG TABLET PO SCH ×2 (08:35→20:24)
[2021-04-12] MEDS: FUROSEMIDE 40MG/4ML VIAL IVP SCH (08:36)
[2021-04-12] MEDS: AZATHIOPRINE 50MG TABLET PO SCH ×2 (08:36→17:06)
[2021-04-12] MEDS: ENOXAPARIN 30MG/0.3ML SYR SUBCUT SCH ×2 (08:38→20:24)
[2021-04-12] MEDS ORDERED: VANCOMYCIN 1,250 MG in DEXT 5% WATER 250 ML IV SCH (12:00)
[2021-04-12] MEDS ORDERED: NALOXONE HCL 0.4MG/ML VIAL IV PRN (17:00)
[2021-04-12] MEDS: GUAIFENESIN/CODEINE 200-20MG/10ML UDC PO PRN (18:22)
[2021-04-12] MEDS: LINEZOLID 600 MG PREMIX 300 ML IV SCH (20:36)
[2021-04-13] VITALS (12 sets, daily range): BP systolic 79–103; BP diastolic 51–69
[2021-04-13] MEDS: IPRATROPIUM/ALBUTEROL 0.5-3(2.5)MG/3ML NEB HHN SCH ×6 (01:37→20:57)
[2021-04-13] MEDS: CEFEPIME 2,000 MG in DEXT 5% WATER 100 ML IV SCH ×3 (04:54→20:09)
[2021-04-13] MEDS: GUAIFENESIN/CODEINE 200-20MG/10ML UDC PO PRN ×2 (04:54→15:18)
[2021-04-13 07:07] LABS: HEMATOCRIT. 29.3 % (36.0-48.0); HEMOGLOBIN. 9.3 g/dL (12.0-16.0); MEAN CORPUSCULAR HEMOGLOBIN 25.8 pg (28.0-32.0); MEAN CORPUSCULAR VOLUME 81.3 fL (81.0-99.0); RED CELL DISTRIBUTION WIDTH 23.4 % (11.6-14.6)
[2021-04-13 07:21] LABS: CHLORIDE 92 mEq/L (98-107)
[2021-04-13] MEDS: ENOXAPARIN 30MG/0.3ML SYR SUBCUT SCH ×2 (08:08→20:12)
[2021-04-13] MEDS: FUROSEMIDE 40MG/4ML VIAL IVP SCH (08:08)
[2021-04-13] MEDS: ALPRAZOLAM 0.5 MG TABLET PO PRN ×2 (08:08→22:29)
[2021-04-13] MEDS: FAMOTIDINE 20MG TABLET PO SCH (08:09)
[2021-04-13] MEDS: POTASSIUM CHLORIDE 20MEQ TABLET SR PO SCH (08:09)
[2021-04-13] MEDS: AZATHIOPRINE 50MG TABLET PO SCH ×2 (08:09→16:12)
[2021-04-13] MEDS: LINEZOLID 600 MG PREMIX 300 ML IV SCH ×2 (08:11→20:13)
[2021-04-13] MEDS: HYDROCODONE/ACETAMINOPHEN 10/325MG TABLET PO PRN ×2 (10:31→18:01)
[2021-04-13] MEDS ORDERED: LACTULOSE 20G/30ML UDC PO NR (11:00)
[2021-04-13 12:33] LABS: PLATELET 238 x1000/uL (130-400)
[2021-04-13 12:37] LABS: ATYPICAL LYMPHOCYTES 1
[2021-04-13 12:38] LABS: PLATELET ESTIMATE NORMAL
[2021-04-14] VITALS (12 sets, daily range): BP systolic 84–117; BP diastolic 39–74
[2021-04-14] MEDS: IPRATROPIUM/ALBUTEROL 0.5-3(2.5)MG/3ML NEB HHN SCH ×6 (00:57→20:26)
[2021-04-14] MEDS: GUAIFENESIN/CODEINE 200-20MG/10ML UDC PO PRN ×3 (03:29→20:42)
[2021-04-14] MEDS: ONDANSETRON HCL 4MG/2ML INJ IV PRN (03:29)
[2021-04-14] MEDS: CEFEPIME 2,000 MG in DEXT 5% WATER 100 ML IV SCH ×3 (03:31→20:44)
[2021-04-14] MEDS: POTASSIUM CHLORIDE 20MEQ TABLET SR PO SCH (08:35)
[2021-04-14] MEDS: FUROSEMIDE 40MG/4ML VIAL IVP SCH (08:35)
[2021-04-14] MEDS: ENOXAPARIN 30MG/0.3ML SYR SUBCUT SCH ×2 (08:35→20:42)
[2021-04-14] MEDS: AZATHIOPRINE 50MG TABLET PO SCH ×2 (08:35→17:00)
[2021-04-14] MEDS: LINEZOLID 600 MG PREMIX 300 ML IV SCH ×2 (08:38→20:46)
[2021-04-14] MEDS: HYDROCODONE/ACETAMINOPHEN 10/325MG TABLET PO PRN ×2 (12:31→20:58)
[2021-04-14] MEDS ORDERED: MORPHINE SULFATE 2 MG/ML CPJ (NOT FOR IM USE) IV SCH (12:45)
[2021-04-14] MEDS: ALPRAZOLAM 0.5 MG TABLET PO PRN (15:58)
[2021-04-15] VITALS (10 sets, daily range): BP systolic 92–130; BP diastolic 54–71
[2021-04-15] MEDS: IPRATROPIUM/ALBUTEROL 0.5-3(2.5)MG/3ML NEB HHN SCH ×6 (00:42→20:30)
[2021-04-15] MEDS: CEFEPIME 2,000 MG in DEXT 5% WATER 100 ML IV SCH (05:15)
[2021-04-15] MEDS: KETOROLAC 15MG/ML VIAL IV PRN ×2 (05:16→18:34)
[2021-04-15] MEDS: ALPRAZOLAM 0.5 MG TABLET PO PRN ×2 (05:17→17:39)
[2021-04-15] MEDS: AZATHIOPRINE 50MG TABLET PO SCH ×2 (09:36→17:20)
[2021-04-15] MEDS: LINEZOLID 600 MG PREMIX 300 ML IV SCH (09:36)
[2021-04-15] MEDS: POTASSIUM CHLORIDE 20MEQ TABLET SR PO SCH (09:36)
[2021-04-15] MEDS: FUROSEMIDE 40MG/4ML VIAL IVP SCH (09:36)
[2021-04-15] MEDS: ENOXAPARIN 30MG/0.3ML SYR SUBCUT SCH ×2 (09:37→20:31)
[2021-04-15] MEDS: ONDANSETRON HCL 4MG/2ML INJ IV PRN (09:46)
[2021-04-15] MEDS: AMPICILLIN 2,000 MG in SODIUM CHLORIDE 0.9% 100 ML IV SCH ×2 (13:25→20:30)
[2021-04-15 16:20] LABS: CHLORIDE 96 mEq/L (98-107)
[2021-04-15 16:23] LABS: MEAN CORPUSCULAR HEMOGLOBIN 26.7 pg (28.0-32.0); MEAN CORPUSCULAR VOLUME 79.8 fL (81.0-99.0); MEAN PLATELET VOLUME 7.7 fl (7.4-10.4); PLATELET 378 x1000/uL (130-400); RED BLOOD CELL COUNT 3.38 mill/uL (4.2-5.4); RED CELL DISTRIBUTION WIDTH 23.2 % (11.6-14.6)
[2021-04-15 17:23] LABS: PLATELET ESTIMATE NORMAL
[2021-04-15] MEDS: LACTULOSE 20G/30ML UDC PO SCH (18:03)
[2021-04-15] MEDS: ACETAMINOPHEN 325MG TABLET PO PRN (20:41)
[2021-04-16] VITALS: BP 107/59
[2021-04-16] MEDS: AMPICILLIN 2,000 MG in SODIUM CHLORIDE 0.9% 100 ML IV SCH ×4 (00:51→18:43)
[2021-04-16] MEDS: KETOROLAC 15MG/ML VIAL IV PRN ×3 (00:57→17:47)
[2021-04-16] MEDS: IPRATROPIUM/ALBUTEROL 0.5-3(2.5)MG/3ML NEB HHN SCH ×5 (04:21→20:18)
[2021-04-16] MEDS: GUAIFENESIN/CODEINE 200-20MG/10ML UDC PO PRN (08:30)
[2021-04-16] MEDS: ALPRAZOLAM 0.25 MG TABLET PO PRN ×2 (08:31→17:47)
[2021-04-16] MEDS: LACTULOSE 20G/30ML UDC PO SCH (09:00)
[2021-04-16] MEDS: POTASSIUM CHLORIDE 20MEQ TABLET SR PO SCH (09:18)
[2021-04-16] MEDS: ENOXAPARIN 30MG/0.3ML SYR SUBCUT SCH ×2 (09:18→21:21)
[2021-04-16] MEDS: MEGESTROL ACETATE 400 MG/10 ML UDC PO SCH (09:18)
[2021-04-16] MEDS: AZATHIOPRINE 50MG TABLET PO SCH ×2 (09:18→17:01)
[2021-04-16] MEDS: FUROSEMIDE 40MG/4ML VIAL IVP SCH (09:18)
[2021-04-16 11:48] VITALS: BP 105/54
[2021-04-16 14:01] VITALS: BP 94/52
[2021-04-16 16:35] VITALS: BP 106/66
[2021-04-16 18:25] VITALS: BP 96/61
[2021-04-17] VITALS (12 sets, daily range): BP systolic 88–141; BP diastolic 32–76
[2021-04-17] MEDS: IPRATROPIUM/ALBUTEROL 0.5-3(2.5)MG/3ML NEB HHN SCH ×5 (00:10→20:13)
[2021-04-17] MEDS: GUAIFENESIN/CODEINE 200-20MG/10ML UDC PO PRN (00:14)
[2021-04-17] MEDS: AMPICILLIN 2,000 MG in SODIUM CHLORIDE 0.9% 100 ML IV SCH ×4 (02:03→18:43)
[2021-04-17] MEDS: KETOROLAC 15MG/ML VIAL IV PRN ×2 (04:50→18:43)
[2021-04-17] MEDS: ALPRAZOLAM 0.25 MG TABLET PO PRN ×2 (04:50→18:12)
[2021-04-17] MEDS: LACTULOSE 20G/30ML UDC PO SCH (09:00)
[2021-04-17] MEDS: MEGESTROL ACETATE 400 MG/10 ML UDC PO SCH (09:34)
[2021-04-17] MEDS: POTASSIUM CHLORIDE 20MEQ TABLET SR PO SCH (09:34)
[2021-04-17] MEDS: FUROSEMIDE 40MG/4ML VIAL IVP SCH (09:34)
[2021-04-17] MEDS: AZATHIOPRINE 50MG TABLET PO SCH ×2 (09:34→17:21)
[2021-04-17] MEDS: ENOXAPARIN 30MG/0.3ML SYR SUBCUT SCH ×2 (09:37→21:24)
[2021-04-18] VITALS (11 sets, daily range): BP systolic 95–116; BP diastolic 43–71
[2021-04-18] MEDS: IPRATROPIUM/ALBUTEROL 0.5-3(2.5)MG/3ML NEB HHN SCH ×6 (00:24→21:04)
[2021-04-18] MEDS: AMPICILLIN 2,000 MG in SODIUM CHLORIDE 0.9% 100 ML IV SCH ×4 (01:06→20:43)
[2021-04-18] MEDS: KETOROLAC 15MG/ML VIAL IV PRN ×3 (02:08→21:12)
[2021-04-18] MEDS: ALPRAZOLAM 0.25 MG TABLET PO PRN ×3 (02:17→21:12)
[2021-04-18] MEDS: GUAIFENESIN/CODEINE 200-20MG/10ML UDC PO PRN ×2 (03:48→20:49)
[2021-04-18] MEDS: AZATHIOPRINE 50MG TABLET PO SCH ×2 (08:38→16:20)
[2021-04-18] MEDS: POTASSIUM CHLORIDE 20MEQ TABLET SR PO SCH (08:38)
[2021-04-18] MEDS: LACTULOSE 20G/30ML UDC PO SCH (08:38)
[2021-04-18] MEDS: ENOXAPARIN 30MG/0.3ML SYR SUBCUT SCH ×2 (08:38→20:44)
[2021-04-18] MEDS: MEGESTROL ACETATE 400 MG/10 ML UDC PO SCH (08:38)
[2021-04-18] MEDS: FUROSEMIDE 40MG/4ML VIAL IVP SCH (08:38)
[2021-04-18] MEDS: DOCUSATE SODIUM 100MG CAPSULE PO SCH (16:20)
[2021-04-19] VITALS (12 sets, daily range): BP systolic 90–112; BP diastolic 40–73
[2021-04-19] MEDS: IPRATROPIUM/ALBUTEROL 0.5-3(2.5)MG/3ML NEB HHN SCH ×6 (00:32→20:36)
[2021-04-19] MEDS: AMPICILLIN 2,000 MG in SODIUM CHLORIDE 0.9% 100 ML IV SCH ×4 (02:26→20:00)
[2021-04-19] MEDS: ALPRAZOLAM 0.25 MG TABLET PO PRN (04:50)
[2021-04-19] MEDS: KETOROLAC 15MG/ML VIAL IV PRN ×2 (04:50→17:00)
[2021-04-19] MEDS: MEGESTROL ACETATE 400 MG/10 ML UDC PO SCH (08:46)
[2021-04-19] MEDS: POTASSIUM CHLORIDE 20MEQ TABLET SR PO SCH (08:46)
[2021-04-19] MEDS: DOCUSATE SODIUM 100MG CAPSULE PO SCH ×2 (08:47→17:36)
[2021-04-19] MEDS: ENOXAPARIN 30MG/0.3ML SYR SUBCUT SCH ×2 (08:47→20:45)
[2021-04-19] MEDS: AZATHIOPRINE 50MG TABLET PO SCH ×2 (08:47→17:36)
[2021-04-19] MEDS: FUROSEMIDE 40MG/4ML VIAL IVP SCH (08:47)
[2021-04-19] MEDS: LACTULOSE 20G/30ML UDC PO SCH (08:47)
[2021-04-19] MEDS ORDERED: LIDOCAINE HCL/PF 1% 2ML VIAL ONE (12:09)
[2021-04-19] MEDS ORDERED: HYDROMORPHONE HCL/PF 2MG/ML CPJ IV SCH (12:15)
[2021-04-19] MEDS ORDERED: LIDOCAINE HCL/EPINEPHRINE 1%-EPI 1:100,000 20 ML VIAL INFIL SCH (12:30)
[2021-04-19 13:38] LABS: BG BASE EXCESS 3.5 mmol/L (-2.0-2.0); BG CARBOXYHEMOGLOBIN 0.6 % (0.5-1.5); BG DEOXYHEMOGLOBIN 4.2 % (0.0-5.0); BG FRACTION INSPIRED OXYGEN 100; BG HCO3 ACT 28.5 mmol/L (22.0-26.0); BG METHEMOGLOBIN 0.3 % (0.0-1.5); BG OXYGEN SATURATION 95.8 % (92.0-98.5); BG OXYHEMOGLOBIN 94.9 % (94.0-97.0); BG PCO2 45.5 mmHg (35.0-45.0); BG PH 7.415 (7.350-7.450); BG PO2 85.8 mmHg (75.0-100.0); BG SAMPLE SITE RIGHT RADIAL; BG TOTAL HEMOGLOBIN 9.7 g/dL (12.0-18.0); BG VENT MODE HIGH FLOW
[2021-04-19] MEDS: GUAIFENESIN/CODEINE 200-20MG/10ML UDC PO PRN (16:59)
[2021-04-20] VITALS (11 sets, daily range): BP systolic 88–119; BP diastolic 53–86
[2021-04-20] MEDS: IPRATROPIUM/ALBUTEROL 0.5-3(2.5)MG/3ML NEB HHN SCH ×6 (00:38→16:45)
[2021-04-20] MEDS: AMPICILLIN 2,000 MG in SODIUM CHLORIDE 0.9% 100 ML IV SCH ×4 (00:55→18:30)
[2021-04-20] MEDS: GUAIFENESIN/CODEINE 200-20MG/10ML UDC PO PRN ×2 (06:33→12:46)
[2021-04-20] MEDS: KETOROLAC 15MG/ML VIAL IV PRN ×3 (06:33→20:30)
[2021-04-20] MEDS: FUROSEMIDE 40MG/4ML VIAL IVP SCH (08:16)
[2021-04-20] MEDS: MEGESTROL ACETATE 400 MG/10 ML UDC PO SCH (08:16)
[2021-04-20] MEDS: ENOXAPARIN 30MG/0.3ML SYR SUBCUT SCH ×2 (08:16→20:18)
[2021-04-20] MEDS: POTASSIUM CHLORIDE 20MEQ TABLET SR PO SCH (08:16)
[2021-04-20] MEDS: LACTULOSE 20G/30ML UDC PO SCH ×2 (08:16→09:00)
[2021-04-20] MEDS: AZATHIOPRINE 50MG TABLET PO SCH ×2 (08:17→18:29)
[2021-04-20] MEDS: DOCUSATE SODIUM 100MG CAPSULE PO SCH ×2 (08:17→17:00)
[2021-04-20] MEDS: ALPRAZOLAM 0.25 MG TABLET PO PRN ×2 (12:46→20:48)
[2021-04-21] VITALS (12 sets, daily range): BP systolic 94–132; BP diastolic 61–73
[2021-04-21] MEDS: GUAIFENESIN/CODEINE 200-20MG/10ML UDC PO PRN (01:19)
[2021-04-21] MEDS: AMPICILLIN 2,000 MG in SODIUM CHLORIDE 0.9% 100 ML IV SCH ×4 (01:19→19:54)
[2021-04-21] MEDS: IPRATROPIUM/ALBUTEROL 0.5-3(2.5)MG/3ML NEB HHN SCH ×3 (04:26→20:24)
[2021-04-21] MEDS: ALPRAZOLAM 0.25 MG TABLET PO PRN (06:46)
[2021-04-21] MEDS: KETOROLAC 15MG/ML VIAL IV PRN (06:46)
[2021-04-21] MEDS: MEGESTROL ACETATE 400 MG/10 ML UDC PO SCH (08:17)
[2021-04-21] MEDS: LACTULOSE 20G/30ML UDC PO SCH (08:17)
[2021-04-21] MEDS: ENOXAPARIN 30MG/0.3ML SYR SUBCUT SCH ×2 (08:17→20:26)
[2021-04-21] MEDS: AZATHIOPRINE 50MG TABLET PO SCH ×2 (08:18→16:15)
[2021-04-21] MEDS: DOCUSATE SODIUM 100MG CAPSULE PO SCH ×2 (08:18→16:15)
[2021-04-21] MEDS: POTASSIUM CHLORIDE 20MEQ TABLET SR PO SCH (08:18)
[2021-04-21] MEDS: DRONABINOL 2.5MG CAPSULE PO SCH (15:01)
[2021-04-22] VITALS (12 sets, daily range): BP systolic 99–121; BP diastolic 49–77
[2021-04-22] MEDS: GUAIFENESIN/CODEINE 200-20MG/10ML UDC PO PRN (00:19)
[2021-04-22] MEDS: KETOROLAC 15MG/ML VIAL IV PRN ×3 (00:20→16:11)
[2021-04-22] MEDS: IPRATROPIUM/ALBUTEROL 0.5-3(2.5)MG/3ML NEB HHN SCH ×6 (00:31→21:17)
[2021-04-22] MEDS: AMPICILLIN 2,000 MG in SODIUM CHLORIDE 0.9% 100 ML IV SCH ×4 (02:18→20:04)
[2021-04-22] MEDS: DRONABINOL 2.5MG CAPSULE PO SCH (08:28)
[2021-04-22] MEDS: DOCUSATE SODIUM 100MG CAPSULE PO SCH ×2 (08:28→16:31)
[2021-04-22] MEDS: POTASSIUM CHLORIDE 20MEQ TABLET SR PO SCH (08:28)
[2021-04-22] MEDS: AZATHIOPRINE 50MG TABLET PO SCH ×2 (08:28→16:10)
[2021-04-22] MEDS: ENOXAPARIN 30MG/0.3ML SYR SUBCUT SCH ×2 (08:29→20:04)
[2021-04-22] MEDS: LACTULOSE 20G/30ML UDC PO SCH (08:29)
[2021-04-22] MEDS ORDERED: NON FORMULARY PATIENT HOME MED PO SCH (09:00)
[2021-04-22] MEDS: FUROSEMIDE 40MG TABLET PO SCH (09:41)
[2021-04-22] MEDS: PAROXETINE HCL 10MG TABLET PO SCH (09:42)
[2021-04-22] MEDS: ALPRAZOLAM 0.5 MG TABLET PO PRN (18:18)
[2021-04-22] MEDS: ZOLPIDEM TARTRATE 5MG TABLET PO PRN (23:44)
[2021-04-23] VITALS (11 sets, daily range): BP systolic 94–126; BP diastolic 21–64
[2021-04-23] MEDS: IPRATROPIUM/ALBUTEROL 0.5-3(2.5)MG/3ML NEB HHN SCH ×7 (01:36→20:46)
[2021-04-23] MEDS: AMPICILLIN 2,000 MG in SODIUM CHLORIDE 0.9% 100 ML IV SCH ×4 (03:23→18:42)
[2021-04-23] MEDS: ALPRAZOLAM 0.5 MG TABLET PO PRN (03:26)
[2021-04-23 06:05] LABS: CHLORIDE 108 mEq/L (98-107)
[2021-04-23 06:15] LABS: BASOPHILS % 1.2 % (0.0-2.0); EOSINOPHILS % 0.8 % (0.0-5.0); HEMATOCRIT. 27.6 % (36.0-48.0); HEMOGLOBIN. 8.8 g/dL (12.0-16.0); LYMPHOCYTES % 15.6 % (20.0-50.0); MEAN CORPUSCULAR HEMOGLOBIN 26.7 pg (28.0-32.0); MEAN CORPUSCULAR VOLUME 83.3 fL (81.0-99.0); MEAN PLATELET VOLUME 7.1 fl (7.4-10.4); MONOCYTES % 4.6 % (2.0-8.0); NEUTROPHILS % 77.8 % (40.0-76.0); PLATELET 533 x1000/uL (130-400); RED BLOOD CELL COUNT 3.31 mill/uL (4.2-5.4); RED CELL DISTRIBUTION WIDTH 23.4 % (11.6-14.6)
[2021-04-23] MEDS: ENOXAPARIN 30MG/0.3ML SYR SUBCUT SCH ×2 (08:42→19:52)
[2021-04-23] MEDS: FUROSEMIDE 40MG TABLET PO SCH (08:43)
[2021-04-23] MEDS: POTASSIUM CHLORIDE 20MEQ TABLET SR PO SCH (08:43)
[2021-04-23] MEDS: DOCUSATE SODIUM 100MG CAPSULE PO SCH ×2 (08:43→16:16)
[2021-04-23] MEDS: LACTULOSE 20G/30ML UDC PO SCH (08:43)
[2021-04-23] MEDS: AZATHIOPRINE 50MG TABLET PO SCH ×2 (08:43→16:25)
[2021-04-23] MEDS: PAROXETINE HCL 10MG TABLET PO SCH (08:43)
[2021-04-23] MEDS: DRONABINOL 2.5MG CAPSULE PO SCH (08:43)
[2021-04-23] MEDS: GUAIFENESIN/CODEINE 200-20MG/10ML UDC PO PRN ×2 (08:47→19:52)
[2021-04-23] MEDS: KETOROLAC 15MG/ML VIAL IV PRN (10:38)
[2021-04-23 13:24] LABS: PLATELET ESTIMATE INCREASED
[2021-04-23] MEDS: TRAZODONE HCL 50MG TABLET PO SCH (19:52)
[2021-04-24] VITALS (12 sets, daily range): BP systolic 91–145; BP diastolic 52–99
[2021-04-24] MEDS: IPRATROPIUM/ALBUTEROL 0.5-3(2.5)MG/3ML NEB HHN SCH ×6 (00:22→21:01)
[2021-04-24] MEDS: AMPICILLIN 2,000 MG in SODIUM CHLORIDE 0.9% 100 ML IV SCH ×4 (01:07→18:42)
[2021-04-24] MEDS: KETOROLAC 15MG/ML VIAL IV PRN ×4 (01:50→21:16)
[2021-04-24] MEDS: LACTULOSE 20G/30ML UDC PO SCH (08:36)
[2021-04-24] MEDS: DOCUSATE SODIUM 100MG CAPSULE PO SCH ×2 (08:36→16:01)
[2021-04-24] MEDS: AZATHIOPRINE 50MG TABLET PO SCH ×2 (08:56→17:35)
[2021-04-24] MEDS: DRONABINOL 2.5MG CAPSULE PO SCH (08:56)
[2021-04-24] MEDS: POTASSIUM CHLORIDE 20MEQ TABLET SR PO SCH (08:56)
[2021-04-24] MEDS: PAROXETINE HCL 10MG TABLET PO SCH (08:56)
[2021-04-24] MEDS: FUROSEMIDE 40MG TABLET PO SCH (08:56)
[2021-04-24] MEDS: ENOXAPARIN 30MG/0.3ML SYR SUBCUT SCH ×2 (08:57→21:17)
[2021-04-24] MEDS: ALPRAZOLAM 0.5 MG TABLET PO PRN ×2 (13:20→18:42)
[2021-04-24] MEDS: GUAIFENESIN/CODEINE 200-20MG/10ML UDC PO PRN ×2 (13:21→21:15)
[2021-04-24] MEDS: METHYLPREDNISOLONE SOD SUCC 125 MG/2 ML VIAL IV SCH ×2 (13:22→21:15)
[2021-04-24] MEDS: TRAZODONE HCL 50MG TABLET PO SCH (21:16)
[2021-04-25] VITALS (8 sets, daily range): BP systolic 87–144; BP diastolic 43–83
[2021-04-25] MEDS: IPRATROPIUM/ALBUTEROL 0.5-3(2.5)MG/3ML NEB HHN SCH ×6 (00:57→20:34)
[2021-04-25] MEDS: GUAIFENESIN/CODEINE 200-20MG/10ML UDC PO PRN ×4 (03:38→20:03)
[2021-04-25] MEDS: AMPICILLIN 2,000 MG in SODIUM CHLORIDE 0.9% 100 ML IV SCH ×4 (03:38→20:02)
[2021-04-25] MEDS: KETOROLAC 15MG/ML VIAL IV PRN ×4 (03:39→20:03)
[2021-04-25 05:46] LABS: TOTAL IRON BINDING CAPACITY 158 ug/dL (250-450)
[2021-04-25] MEDS: METHYLPREDNISOLONE SOD SUCC 125 MG/2 ML VIAL IV SCH ×3 (06:03→17:39)
[2021-04-25] MEDS: DOCUSATE SODIUM 100MG CAPSULE PO SCH ×3 (09:00→17:00)
[2021-04-25] MEDS: FUROSEMIDE 40MG TABLET PO SCH (10:08)
[2021-04-25] MEDS: ZINC SULFATE 220 MG ( 50 ) CAPSULE PO SCH (10:09)
[2021-04-25] MEDS: POTASSIUM CHLORIDE 20MEQ TABLET SR PO SCH (10:09)
[2021-04-25] MEDS: MULTIVITAMINS,THER W-MINERALS TABLET PO SCH (10:09)
[2021-04-25] MEDS: LACTULOSE 20G/30ML UDC PO SCH ×2 (10:10→10:17)
[2021-04-25] MEDS: PAROXETINE HCL 10MG TABLET PO SCH (10:10)
[2021-04-25] MEDS: AZATHIOPRINE 50MG TABLET PO SCH ×2 (10:10→17:40)
[2021-04-25] MEDS: DRONABINOL 2.5MG CAPSULE PO SCH (10:26)
[2021-04-25] MEDS: ENOXAPARIN 30MG/0.3ML SYR SUBCUT SCH ×2 (10:26→20:03)
[2021-04-25 14:48] LABS: CHLORIDE 106 mEq/L (98-107)
[2021-04-25] MEDS: ALPRAZOLAM 0.5 MG TABLET PO PRN (14:56)
[2021-04-25 15:13] LABS: BASOPHILS % 0.5 % (0.0-2.0); EOSINOPHILS % 0.1 % (0.0-5.0); HEMATOCRIT. 28.2 % (36.0-48.0); HEMOGLOBIN. 8.7 g/dL (12.0-16.0); LYMPHOCYTES % 18.2 % (20.0-50.0); MEAN CORPUSCULAR HEMOGLOBIN 26.1 pg (28.0-32.0); MEAN CORPUSCULAR VOLUME 84.8 fL (81.0-99.0); MEAN PLATELET VOLUME 7.4 fl (7.4-10.4); NEUTROPHILS % 80.2 % (40.0-76.0); PLATELET 489 x1000/uL (130-400); RED BLOOD CELL COUNT 3.32 mill/uL (4.2-5.4); RED CELL DISTRIBUTION WIDTH 23.2 % (11.6-14.6)
[2021-04-25] MEDS: GUAIFENESIN-DM 200MG-20MG/10ML UDC PO PRN (17:39)
[2021-04-25] MEDS: FERROUS SULFATE 325MG TABLET PO SCH (18:53)
[2021-04-25] MEDS: TRAZODONE HCL 50MG TABLET PO SCH (20:02)
[2021-04-26] VITALS (12 sets, daily range): BP systolic 107–150; BP diastolic 35–75
[2021-04-26] MEDS: IPRATROPIUM/ALBUTEROL 0.5-3(2.5)MG/3ML NEB HHN SCH ×6 (00:39→21:02)
[2021-04-26] MEDS: METHYLPREDNISOLONE SOD SUCC 125 MG/2 ML VIAL IV SCH ×4 (02:13→20:49)
[2021-04-26] MEDS: GUAIFENESIN-DM 200MG-20MG/10ML UDC PO PRN ×3 (02:13→18:13)
[2021-04-26] MEDS: KETOROLAC 15MG/ML VIAL IV PRN ×3 (02:13→18:14)
[2021-04-26] MEDS: AMPICILLIN 2,000 MG in SODIUM CHLORIDE 0.9% 100 ML IV SCH ×4 (02:14→20:49)
[2021-04-26] MEDS: DRONABINOL 2.5MG CAPSULE PO SCH (08:17)
[2021-04-26] MEDS: DOCUSATE SODIUM 100MG CAPSULE PO SCH ×2 (08:17→16:58)
[2021-04-26] MEDS: PAROXETINE HCL 10MG TABLET PO SCH (08:17)
[2021-04-26] MEDS: POTASSIUM CHLORIDE 20MEQ TABLET SR PO SCH (08:18)
[2021-04-26] MEDS: AZATHIOPRINE 50MG TABLET PO SCH ×2 (08:18→16:58)
[2021-04-26] MEDS: MULTIVITAMINS,THER W-MINERALS TABLET PO SCH (08:18)
[2021-04-26] MEDS: FERROUS SULFATE 325MG TABLET PO SCH ×3 (08:18→16:58)
[2021-04-26] MEDS: ZINC SULFATE 220 MG ( 50 ) CAPSULE PO SCH (08:18)
[2021-04-26] MEDS: FUROSEMIDE 40MG TABLET PO SCH (08:18)
[2021-04-26] MEDS: ENOXAPARIN 30MG/0.3ML SYR SUBCUT SCH ×2 (08:19→20:49)
[2021-04-26] MEDS: ALPRAZOLAM 0.5 MG TABLET PO PRN (18:13)
[2021-04-26] MEDS: TRAZODONE HCL 50MG TABLET PO SCH (21:00)
[2021-04-27] VITALS (12 sets, daily range): BP systolic 109–157; BP diastolic 51–87
[2021-04-27] MEDS: ALPRAZOLAM 0.5 MG TABLET PO PRN (00:17)
[2021-04-27] MEDS: KETOROLAC 15MG/ML VIAL IV PRN ×2 (00:18→15:52)
[2021-04-27] MEDS: IPRATROPIUM/ALBUTEROL 0.5-3(2.5)MG/3ML NEB HHN SCH ×6 (00:54→20:15)
[2021-04-27] MEDS: GUAIFENESIN/CODEINE 200-20MG/10ML UDC PO PRN (01:46)
[2021-04-27] MEDS: METHYLPREDNISOLONE SOD SUCC 125 MG/2 ML VIAL IV SCH ×4 (01:52→20:19)
[2021-04-27] MEDS: GUAIFENESIN-DM 200MG-20MG/10ML UDC PO PRN ×3 (02:11→20:39)
[2021-04-27] MEDS: AMPICILLIN 2,000 MG in SODIUM CHLORIDE 0.9% 100 ML IV SCH ×4 (02:22→21:43)
[2021-04-27] MEDS: FERROUS SULFATE 325MG TABLET PO SCH ×3 (07:36→17:43)
[2021-04-27] MEDS: ZINC SULFATE 220 MG ( 50 ) CAPSULE PO SCH (08:56)
[2021-04-27] MEDS: POTASSIUM CHLORIDE 20MEQ TABLET SR PO SCH (08:56)
[2021-04-27] MEDS: DOCUSATE SODIUM 100MG CAPSULE PO SCH ×2 (08:56→17:43)
[2021-04-27] MEDS: AZATHIOPRINE 50MG TABLET PO SCH ×2 (08:56→17:43)
[2021-04-27] MEDS: FUROSEMIDE 40MG TABLET PO SCH (08:57)
[2021-04-27] MEDS: MULTIVITAMINS,THER W-MINERALS TABLET PO SCH (08:57)
[2021-04-27] MEDS: PAROXETINE HCL 10MG TABLET PO SCH (08:57)
[2021-04-27] MEDS: ENOXAPARIN 30MG/0.3ML SYR SUBCUT SCH ×2 (08:58→20:20)
[2021-04-27] MEDS: DRONABINOL 2.5MG CAPSULE PO SCH (08:58)
[2021-04-27] MEDS: LACTULOSE 20G/30ML UDC PO SCH (08:58)
[2021-04-27] MEDS: ACETAMINOPHEN 325MG TABLET PO PRN (18:20)
[2021-04-27] MEDS: TRAZODONE HCL 50MG TABLET PO SCH (20:39)
[2021-04-27] MEDS: ZOLPIDEM TARTRATE 5MG TABLET PO PRN (20:39)
[2021-04-28] VITALS (12 sets, daily range): BP systolic 115–180; BP diastolic 52–101
[2021-04-28] MEDS: KETOROLAC 15MG/ML VIAL IV PRN ×3 (00:17→21:37)
[2021-04-28] MEDS: IPRATROPIUM/ALBUTEROL 0.5-3(2.5)MG/3ML NEB HHN SCH ×3 (00:45→21:07)
[2021-04-28] MEDS: METHYLPREDNISOLONE SOD SUCC 125 MG/2 ML VIAL IV SCH ×4 (02:48→21:14)
[2021-04-28] MEDS: DRONABINOL 2.5MG CAPSULE PO SCH (08:57)
[2021-04-28] MEDS: LACTULOSE 20G/30ML UDC PO SCH (08:57)
[2021-04-28] MEDS: PAROXETINE HCL 10MG TABLET PO SCH (08:58)
[2021-04-28] MEDS: AZATHIOPRINE 50MG TABLET PO SCH ×2 (08:58→17:00)
[2021-04-28] MEDS: FUROSEMIDE 40MG TABLET PO SCH (08:58)
[2021-04-28] MEDS: DOCUSATE SODIUM 100MG CAPSULE PO SCH ×2 (08:58→17:00)
[2021-04-28] MEDS: ZINC SULFATE 220 MG ( 50 ) CAPSULE PO SCH (08:58)
[2021-04-28] MEDS: POTASSIUM CHLORIDE 20MEQ TABLET SR PO SCH (08:58)
[2021-04-28] MEDS: ENOXAPARIN 30MG/0.3ML SYR SUBCUT SCH ×2 (08:59→21:14)
[2021-04-28] MEDS: MULTIVITAMINS,THER W-MINERALS TABLET PO SCH (08:59)
[2021-04-28] MEDS: FERROUS SULFATE 325MG TABLET PO SCH ×3 (08:59→18:00)
[2021-04-28] MEDS ORDERED: ALPRAZOLAM 0.25 MG TABLET PO PRN (20:45)
[2021-04-28] MEDS ORDERED: ONDANSETRON HCL 4MG/2ML INJ IV PRN (20:45)
[2021-04-28] MEDS: TRAZODONE HCL 50MG TABLET PO SCH (21:14)
[2021-04-28] MEDS: ALPRAZOLAM 0.25 MG TABLET PO PRN (21:38)
[2021-04-29] VITALS (12 sets, daily range): BP systolic 110–141; BP diastolic 50–97
[2021-04-29] MEDS: IPRATROPIUM/ALBUTEROL 0.5-3(2.5)MG/3ML NEB HHN SCH ×6 (00:48→20:18)
[2021-04-29] MEDS: METHYLPREDNISOLONE SOD SUCC 125 MG/2 ML VIAL IV SCH ×4 (01:57→21:47)
[2021-04-29] MEDS: GUAIFENESIN-DM 200MG-20MG/10ML UDC PO PRN ×2 (06:27→18:16)
[2021-04-29] MEDS: FERROUS SULFATE 325MG TABLET PO SCH ×4 (08:00→18:16)
[2021-04-29] MEDS: GUAIFENESIN/CODEINE 200-20MG/10ML UDC PO PRN (08:49)
[2021-04-29] MEDS: KETOROLAC 15MG/ML VIAL IV PRN ×2 (08:50→18:18)
[2021-04-29] MEDS: FUROSEMIDE 40MG/4ML VIAL IVP SCH ×2 (08:50→17:00)
[2021-04-29] MEDS: DOCUSATE SODIUM 100MG CAPSULE PO SCH ×2 (08:51→17:00)
[2021-04-29] MEDS: LACTULOSE 20G/30ML UDC PO SCH (08:51)
[2021-04-29] MEDS: AZATHIOPRINE 50MG TABLET PO SCH ×2 (08:51→17:00)
[2021-04-29] MEDS: POTASSIUM CHLORIDE 20MEQ TABLET SR PO SCH (08:51)
[2021-04-29] MEDS: PAROXETINE HCL 10MG TABLET PO SCH (08:52)
[2021-04-29] MEDS: DRONABINOL 2.5MG CAPSULE PO SCH (08:52)
[2021-04-29] MEDS: MULTIVITAMINS,THER W-MINERALS TABLET PO SCH (08:52)
[2021-04-29] MEDS: ZINC SULFATE 220 MG ( 50 ) CAPSULE PO SCH (08:52)
[2021-04-29] MEDS: ALPRAZOLAM 0.25 MG TABLET PO PRN ×2 (08:55→18:18)
[2021-04-29] MEDS: ENOXAPARIN 30MG/0.3ML SYR SUBCUT SCH ×2 (08:55→21:46)
[2021-04-29] MEDS: TRAZODONE HCL 50MG TABLET PO SCH (21:46)
[2021-04-30] VITALS (12 sets, daily range): BP systolic 94–134; BP diastolic 51–81
[2021-04-30] MEDS: IPRATROPIUM/ALBUTEROL 0.5-3(2.5)MG/3ML NEB HHN SCH ×6 (00:20→20:30)
[2021-04-30] MEDS: METHYLPREDNISOLONE SOD SUCC 125 MG/2 ML VIAL IV SCH ×4 (01:09→20:15)
[2021-04-30] MEDS: FERROUS SULFATE 325MG TABLET PO SCH ×3 (08:00→18:00)
[2021-04-30] MEDS: GUAIFENESIN/CODEINE 200-20MG/10ML UDC PO PRN ×2 (08:18→14:49)
[2021-04-30] MEDS: ENOXAPARIN 30MG/0.3ML SYR SUBCUT SCH ×2 (08:18→20:15)
[2021-04-30] MEDS: ALPRAZOLAM 0.25 MG TABLET PO PRN ×2 (08:18→18:12)
[2021-04-30] MEDS: FUROSEMIDE 40MG/4ML VIAL IVP SCH ×2 (08:18→17:00)
[2021-04-30] MEDS: GUAIFENESIN-DM 200MG-20MG/10ML UDC PO PRN ×3 (08:18→18:12)
[2021-04-30] MEDS: POTASSIUM CHLORIDE 20MEQ TABLET SR PO SCH (09:00)
[2021-04-30] MEDS: ZINC SULFATE 220 MG ( 50 ) CAPSULE PO SCH (09:00)
[2021-04-30] MEDS: DOCUSATE SODIUM 100MG CAPSULE PO SCH ×2 (09:00→17:00)
[2021-04-30] MEDS: AZATHIOPRINE 50MG TABLET PO SCH ×2 (09:00→17:00)
[2021-04-30] MEDS: DRONABINOL 2.5MG CAPSULE PO SCH (09:00)
[2021-04-30] MEDS: LACTULOSE 20G/30ML UDC PO SCH (09:00)
[2021-04-30] MEDS: MULTIVITAMINS,THER W-MINERALS TABLET PO SCH (09:00)
[2021-04-30] MEDS: PAROXETINE HCL 10MG TABLET PO SCH (09:00)
[2021-04-30] MEDS: KETOROLAC 15MG/ML VIAL IV PRN (15:07)
[2021-04-30] MEDS: TRAZODONE HCL 50MG TABLET PO SCH (20:15)
[2021-05-01] VITALS (12 sets, daily range): BP systolic 107–145; BP diastolic 55–87
[2021-05-01] MEDS: IPRATROPIUM/ALBUTEROL 0.5-3(2.5)MG/3ML NEB HHN SCH ×6 (00:22→20:44)
[2021-05-01] MEDS: GUAIFENESIN-DM 200MG-20MG/10ML UDC PO PRN ×3 (00:27→17:59)
[2021-05-01] MEDS: KETOROLAC 15MG/ML VIAL IV PRN ×3 (00:27→18:39)
[2021-05-01] MEDS: METHYLPREDNISOLONE SOD SUCC 125 MG/2 ML VIAL IV SCH ×4 (01:49→19:43)
[2021-05-01] MEDS: ALPRAZOLAM 0.25 MG TABLET PO PRN ×3 (01:50→17:59)
[2021-05-01] MEDS: GUAIFENESIN/CODEINE 200-20MG/10ML UDC PO PRN (06:17)
[2021-05-01] MEDS: FERROUS SULFATE 325MG TABLET PO SCH ×3 (08:00→17:10)
[2021-05-01] MEDS: FUROSEMIDE 40MG/4ML VIAL IVP SCH ×2 (08:41→17:00)
[2021-05-01] MEDS: LACTULOSE 20G/30ML UDC PO SCH (08:43)
[2021-05-01] MEDS: ENOXAPARIN 30MG/0.3ML SYR SUBCUT SCH ×2 (08:43→19:44)
[2021-05-01] MEDS: ZINC SULFATE 220 MG ( 50 ) CAPSULE PO SCH (08:44)
[2021-05-01] MEDS: DRONABINOL 2.5MG CAPSULE PO SCH (08:44)
[2021-05-01] MEDS: AZATHIOPRINE 50MG TABLET PO SCH ×2 (08:44→16:07)
[2021-05-01] MEDS: DOCUSATE SODIUM 100MG CAPSULE PO SCH ×2 (08:44→16:07)
[2021-05-01] MEDS: MULTIVITAMINS,THER W-MINERALS TABLET PO SCH (08:44)
[2021-05-01] MEDS: PAROXETINE HCL 10MG TABLET PO SCH (08:44)
[2021-05-01] MEDS: POTASSIUM CHLORIDE 20MEQ TABLET SR PO SCH (08:44)
[2021-05-01] MEDS: TRAZODONE HCL 50MG TABLET PO SCH (19:43)
[2021-05-02] VITALS (12 sets, daily range): BP systolic 99–133; BP diastolic 53–88
[2021-05-02] MEDS: IPRATROPIUM/ALBUTEROL 0.5-3(2.5)MG/3ML NEB HHN SCH ×5 (00:23→20:31)
[2021-05-02] MEDS: KETOROLAC 15MG/ML VIAL IV PRN ×3 (00:45→22:41)
[2021-05-02] MEDS: GUAIFENESIN-DM 200MG-20MG/10ML UDC PO PRN ×3 (00:45→22:42)
[2021-05-02] MEDS: ALPRAZOLAM 0.25 MG TABLET PO PRN ×3 (00:46→19:52)
[2021-05-02] MEDS: METHYLPREDNISOLONE SOD SUCC 125 MG/2 ML VIAL IV SCH ×4 (00:54→19:52)
[2021-05-02] MEDS: FERROUS SULFATE 325MG TABLET PO SCH ×4 (08:00→18:00)
[2021-05-02] MEDS: FUROSEMIDE 40MG/4ML VIAL IVP SCH ×2 (08:56→17:44)
[2021-05-02] MEDS: PAROXETINE HCL 10MG TABLET PO SCH (08:58)
[2021-05-02] MEDS: ENOXAPARIN 30MG/0.3ML SYR SUBCUT SCH ×2 (08:58→20:01)
[2021-05-02] MEDS: MULTIVITAMINS,THER W-MINERALS TABLET PO SCH (08:59)
[2021-05-02] MEDS: POTASSIUM CHLORIDE 20MEQ TABLET SR PO SCH (08:59)
[2021-05-02] MEDS: DRONABINOL 2.5MG CAPSULE PO SCH (08:59)
[2021-05-02] MEDS: ZINC SULFATE 220 MG ( 50 ) CAPSULE PO SCH (08:59)
[2021-05-02] MEDS: AZATHIOPRINE 50MG TABLET PO SCH ×2 (08:59→17:44)
[2021-05-02] MEDS: DOCUSATE SODIUM 100MG CAPSULE PO SCH ×2 (09:00→17:00)
[2021-05-02] MEDS: LACTULOSE 20G/30ML UDC PO SCH (09:00)
[2021-05-02 13:11] LABS: BG BASE EXCESS 7.4 mmol/L (-2.0-2.0); BG CARBOXYHEMOGLOBIN 0.2 % (0.5-1.5); BG HCO3 ACT 32.1 mmol/L (22.0-26.0); BG METHEMOGLOBIN 0.1 % (0.0-1.5); BG OXYHEMOGLOBIN 97.7 % (94.0-97.0); BG PH 7.462 (7.350-7.450); BG PO2 109.2 mmHg (75.0-100.0); BG SAMPLE SITE RIGHT BRACHIAL; BG VENT MODE VAPOTHERM
[2021-05-02] MEDS: TRAZODONE HCL 50MG TABLET PO SCH (20:01)
[2021-05-03] VITALS (12 sets, daily range): BP systolic 112–149; BP diastolic 52–84
[2021-05-03] MEDS: IPRATROPIUM/ALBUTEROL 0.5-3(2.5)MG/3ML NEB HHN SCH ×6 (00:25→20:20)
[2021-05-03] MEDS: METHYLPREDNISOLONE SOD SUCC 125 MG/2 ML VIAL IV SCH ×4 (01:54→20:17)
[2021-05-03 06:36] LABS: HEMATOCRIT. 31.9 % (36.0-48.0); HEMOGLOBIN. 10.4 g/dL (12.0-16.0); MEAN CORPUSCULAR HEMOGLOBIN 27.2 pg (28.0-32.0); MEAN CORPUSCULAR VOLUME 83.6 fL (81.0-99.0); MEAN PLATELET VOLUME 8.6 fl (7.4-10.4); PLATELET 189 x1000/uL (130-400); RED BLOOD CELL COUNT 3.82 mill/uL (4.2-5.4); RED CELL DISTRIBUTION WIDTH 24.3 % (11.6-14.6)
[2021-05-03 07:10] LABS: CHLORIDE 96 mEq/L (98-107)
[2021-05-03] MEDS: FERROUS SULFATE 325MG TABLET PO SCH ×3 (08:00→18:00)
[2021-05-03] MEDS: POTASSIUM CHLORIDE 20MEQ TABLET SR PO SCH (09:00)
[2021-05-03] MEDS: LACTULOSE 20G/30ML UDC PO SCH (09:15)
[2021-05-03] MEDS: GUAIFENESIN-DM 200MG-20MG/10ML UDC PO PRN ×2 (09:15→14:16)
[2021-05-03] MEDS: FUROSEMIDE 40MG/4ML VIAL IVP SCH ×2 (09:15→17:00)
[2021-05-03] MEDS: ENOXAPARIN 30MG/0.3ML SYR SUBCUT SCH ×2 (09:16→20:17)
[2021-05-03] MEDS: DRONABINOL 2.5MG CAPSULE PO SCH (09:20)
[2021-05-03] MEDS: KETOROLAC 15MG/ML VIAL IV PRN (09:20)
[2021-05-03] MEDS: AZATHIOPRINE 50MG TABLET PO SCH ×2 (09:22→17:57)
[2021-05-03] MEDS: ZINC SULFATE 220 MG ( 50 ) CAPSULE PO SCH (09:23)
[2021-05-03] MEDS: PAROXETINE HCL 10MG TABLET PO SCH (09:23)
[2021-05-03] MEDS: MULTIVITAMINS,THER W-MINERALS TABLET PO SCH (09:23)
[2021-05-03] MEDS: DOCUSATE SODIUM 100MG CAPSULE PO SCH ×2 (09:24→17:00)
[2021-05-03] MEDS: ALPRAZOLAM 0.25 MG TABLET PO PRN (13:48)
[2021-05-03] MEDS: TRAMADOL 50MG TABLET PO PRN (17:57)
[2021-05-03] MEDS: TRAZODONE HCL 50MG TABLET PO SCH (20:17)
[2021-05-04] VITALS (12 sets, daily range): BP systolic 108–141; BP diastolic 44–85
[2021-05-04] MEDS: IPRATROPIUM/ALBUTEROL 0.5-3(2.5)MG/3ML NEB HHN SCH ×6 (00:07→20:40)
[2021-05-04] MEDS: TRAMADOL 50MG TABLET PO PRN ×4 (00:17→20:20)
[2021-05-04] MEDS: METHYLPREDNISOLONE SOD SUCC 125 MG/2 ML VIAL IV SCH ×4 (01:01→20:20)
[2021-05-04] MEDS: ZINC SULFATE 220 MG ( 50 ) CAPSULE PO SCH (08:15)
[2021-05-04] MEDS: PAROXETINE HCL 10MG TABLET PO SCH (08:15)
[2021-05-04] MEDS: LACTULOSE 20G/30ML UDC PO SCH (08:16)
[2021-05-04] MEDS: AZATHIOPRINE 50MG TABLET PO SCH ×2 (08:16→17:00)
[2021-05-04] MEDS: FUROSEMIDE 40MG/4ML VIAL IVP SCH ×2 (08:16→17:03)
[2021-05-04] MEDS: DRONABINOL 2.5MG CAPSULE PO SCH (08:16)
[2021-05-04] MEDS: MULTIVITAMINS,THER W-MINERALS TABLET PO SCH (08:16)
[2021-05-04] MEDS: FERROUS SULFATE 325MG TABLET PO SCH ×3 (08:16→17:11)
[2021-05-04] MEDS: POTASSIUM CHLORIDE 20MEQ TABLET SR PO SCH (08:16)
[2021-05-04] MEDS: DOCUSATE SODIUM 100MG CAPSULE PO SCH ×2 (08:16→17:03)
[2021-05-04] MEDS: ENOXAPARIN 30MG/0.3ML SYR SUBCUT SCH (08:17)
[2021-05-04] MEDS: GUAIFENESIN/CODEINE 200-20MG/10ML UDC PO PRN ×2 (09:30→20:20)
[2021-05-04] MEDS: GUAIFENESIN-DM 200MG-20MG/10ML UDC PO PRN ×2 (13:42→23:11)
[2021-05-04 17:43] LABS: PLATELET ESTIMATE NORMAL
[2021-05-04] MEDS: ALPRAZOLAM 0.25 MG TABLET PO PRN (18:36)
[2021-05-04] MEDS: TRAZODONE HCL 50MG TABLET PO SCH (20:24)
[2021-05-05] VITALS (12 sets, daily range): BP systolic 97–132; BP diastolic 58–82
[2021-05-05] MEDS: IPRATROPIUM/ALBUTEROL 0.5-3(2.5)MG/3ML NEB HHN SCH ×5 (00:36→20:23)
[2021-05-05] MEDS: METHYLPREDNISOLONE SOD SUCC 125 MG/2 ML VIAL IV SCH ×4 (02:00→20:02)
[2021-05-05] MEDS: ALPRAZOLAM 0.25 MG TABLET PO PRN ×2 (02:18→18:50)
[2021-05-05] MEDS: GUAIFENESIN/CODEINE 200-20MG/10ML UDC PO PRN ×2 (03:17→10:49)
[2021-05-05] MEDS: TRAMADOL 50MG TABLET PO PRN ×3 (03:18→20:02)
[2021-05-05] MEDS: DOCUSATE SODIUM 100MG CAPSULE PO SCH ×2 (09:00→16:53)
[2021-05-05] MEDS: ZINC SULFATE 220 MG ( 50 ) CAPSULE PO SCH (09:43)
[2021-05-05] MEDS: FUROSEMIDE 40MG/4ML VIAL IVP SCH ×2 (09:43→17:54)
[2021-05-05] MEDS: LACTULOSE 20G/30ML UDC PO SCH (09:43)
[2021-05-05] MEDS: FERROUS SULFATE 325MG TABLET PO SCH ×3 (09:43→17:27)
[2021-05-05] MEDS: PAROXETINE HCL 10MG TABLET PO SCH (09:44)
[2021-05-05] MEDS: AZATHIOPRINE 50MG TABLET PO SCH ×2 (09:44→17:00)
[2021-05-05] MEDS: POTASSIUM CHLORIDE 20MEQ TABLET SR PO SCH (09:44)
[2021-05-05] MEDS: MULTIVITAMINS,THER W-MINERALS TABLET PO SCH (09:44)
[2021-05-05] MEDS: DRONABINOL 2.5MG CAPSULE PO SCH (09:44)
[2021-05-05] MEDS: ENOXAPARIN 40MG/0.4ML SYR SUBCUT SCH (09:45)
[2021-05-05] MEDS ORDERED: DEXTROSE 50% WATER 50ML SYRINGE IV PRN (11:15)
[2021-05-05] MEDS: BENZONATATE 100MG CAPSULE PO PRN (12:30)
[2021-05-05] MEDS: BLOOD SUGAR DIAGNOSTIC STRIP TEST SCH ×3 (12:37→20:18)
[2021-05-05] MEDS: INSULIN LISPRO 100 UNITS/ML SUBCUT SCH ×3 (12:40→20:26)
[2021-05-05] MEDS: TRAZODONE HCL 50MG TABLET PO SCH (20:01)
[2021-05-05] MEDS: GUAIFENESIN-DM 200MG-20MG/10ML UDC PO PRN (20:02)
[2021-05-06] VITALS (12 sets, daily range): BP systolic 104–137; BP diastolic 44–78
[2021-05-06] MEDS: GUAIFENESIN/CODEINE 200-20MG/10ML UDC PO PRN (00:04)
[2021-05-06] MEDS: IPRATROPIUM/ALBUTEROL 0.5-3(2.5)MG/3ML NEB HHN SCH ×6 (00:30→21:14)
[2021-05-06] MEDS: BENZONATATE 100MG CAPSULE PO PRN (00:39)
[2021-05-06] MEDS: GUAIFENESIN-DM 200MG-20MG/10ML UDC PO PRN (04:06)
[2021-05-06] MEDS: METHYLPREDNISOLONE SOD SUCC 125 MG/2 ML VIAL IV SCH ×4 (04:06→20:53)
[2021-05-06] MEDS: FUROSEMIDE 40MG/4ML VIAL IVP SCH ×2 (05:30→17:15)
[2021-05-06] MEDS: BLOOD SUGAR DIAGNOSTIC STRIP TEST SCH ×4 (07:30→21:00)
[2021-05-06] MEDS: FERROUS SULFATE 325MG TABLET PO SCH ×3 (08:00→17:55)
[2021-05-06] MEDS: AZATHIOPRINE 50MG TABLET PO SCH ×2 (08:27→17:00)
[2021-05-06] MEDS: ENOXAPARIN 40MG/0.4ML SYR SUBCUT SCH (08:27)
[2021-05-06] MEDS: LACTULOSE 20G/30ML UDC PO SCH (08:27)
[2021-05-06] MEDS: DRONABINOL 2.5MG CAPSULE PO SCH (08:28)
[2021-05-06] MEDS: POTASSIUM CHLORIDE 20MEQ TABLET SR PO SCH (08:28)
[2021-05-06] MEDS: ZINC SULFATE 220 MG ( 50 ) CAPSULE PO SCH (08:28)
[2021-05-06] MEDS: PAROXETINE HCL 10MG TABLET PO SCH (08:28)
[2021-05-06] MEDS: DOCUSATE SODIUM 100MG CAPSULE PO SCH ×2 (08:28→17:00)
[2021-05-06] MEDS: MULTIVITAMINS,THER W-MINERALS TABLET PO SCH (08:28)
[2021-05-06] MEDS: INSULIN LISPRO 100 UNITS/ML SUBCUT SCH ×4 (08:31→20:54)
[2021-05-06] MEDS: ALPRAZOLAM 0.25 MG TABLET PO PRN ×2 (10:04→17:30)
[2021-05-06] MEDS: TRAMADOL 50MG TABLET PO PRN ×2 (10:04→17:26)
[2021-05-06 15:24] LABS: CHLORIDE 91 mEq/L (98-107)
[2021-05-06] MEDS: TRAZODONE HCL 50MG TABLET PO SCH (20:53)
[2021-05-07] VITALS (11 sets, daily range): BP systolic 109–150; BP diastolic 60–96
[2021-05-07] MEDS: IPRATROPIUM/ALBUTEROL 0.5-3(2.5)MG/3ML NEB HHN SCH ×6 (00:55→20:59)
[2021-05-07] MEDS: METHYLPREDNISOLONE SOD SUCC 125 MG/2 ML VIAL IV SCH ×4 (00:57→21:02)
[2021-05-07] MEDS: TRAMADOL 50MG TABLET PO PRN ×4 (00:57→23:37)
[2021-05-07] MEDS: BENZONATATE 100MG CAPSULE PO PRN (01:14)
[2021-05-07] MEDS: FUROSEMIDE 40MG/4ML VIAL IVP SCH ×2 (05:58→17:15)
[2021-05-07] MEDS: INSULIN LISPRO 100 UNITS/ML SUBCUT SCH ×4 (07:59→21:13)
[2021-05-07] MEDS: FERROUS SULFATE 325MG TABLET PO SCH ×3 (08:00→17:07)
[2021-05-07] MEDS: BLOOD SUGAR DIAGNOSTIC STRIP TEST SCH ×4 (08:01→21:03)
[2021-05-07] MEDS: GUAIFENESIN-DM 200MG-20MG/10ML UDC PO PRN ×2 (08:03→23:36)
[2021-05-07] MEDS: LACTULOSE 20G/30ML UDC PO SCH (08:03)
[2021-05-07] MEDS: ENOXAPARIN 40MG/0.4ML SYR SUBCUT SCH (08:03)
[2021-05-07] MEDS: POTASSIUM CHLORIDE 20MEQ TABLET SR PO SCH (08:04)
[2021-05-07] MEDS: AZATHIOPRINE 50MG TABLET PO SCH ×2 (08:05→17:28)
[2021-05-07] MEDS: PAROXETINE HCL 10MG TABLET PO SCH (08:05)
[2021-05-07] MEDS: MULTIVITAMINS,THER W-MINERALS TABLET PO SCH (08:06)
[2021-05-07] MEDS: ZINC SULFATE 220 MG ( 50 ) CAPSULE PO SCH (08:06)
[2021-05-07] MEDS: DRONABINOL 2.5MG CAPSULE PO SCH (08:06)
[2021-05-07] MEDS: DOCUSATE SODIUM 100MG CAPSULE PO SCH ×2 (08:06→17:28)
[2021-05-07] MEDS: TRAZODONE HCL 50MG TABLET PO SCH (20:54)
[2021-05-07] MEDS: ALPRAZOLAM 0.25 MG TABLET PO PRN (21:02)
[2021-05-08] VITALS (12 sets, daily range): BP systolic 60–153; BP diastolic 38–89
[2021-05-08] MEDS: IPRATROPIUM/ALBUTEROL 0.5-3(2.5)MG/3ML NEB HHN SCH ×7 (03:48→23:53)
[2021-05-08] MEDS: GUAIFENESIN/CODEINE 200-20MG/10ML UDC PO PRN ×2 (03:48→21:55)
[2021-05-08] MEDS: METHYLPREDNISOLONE SOD SUCC 125 MG/2 ML VIAL IV SCH ×3 (06:20→21:16)
[2021-05-08] MEDS: FUROSEMIDE 40MG/4ML VIAL IVP SCH ×2 (06:21→17:15)
[2021-05-08] MEDS: TRAMADOL 50MG TABLET PO PRN ×3 (06:25→19:09)
[2021-05-08] MEDS: ZINC SULFATE 220 MG ( 50 ) CAPSULE PO SCH (09:00)
[2021-05-08] MEDS: DOCUSATE SODIUM 100MG CAPSULE PO SCH ×2 (09:49→18:07)
[2021-05-08] MEDS: LACTULOSE 20G/30ML UDC PO SCH (09:49)
[2021-05-08] MEDS: FERROUS SULFATE 325MG TABLET PO SCH ×3 (09:49→18:00)
[2021-05-08] MEDS: AZATHIOPRINE 50MG TABLET PO SCH ×2 (09:50→18:07)
[2021-05-08] MEDS: DRONABINOL 2.5MG CAPSULE PO SCH (09:50)
[2021-05-08] MEDS: PAROXETINE HCL 10MG TABLET PO SCH (09:51)
[2021-05-08] MEDS: MULTIVITAMINS,THER W-MINERALS TABLET PO SCH (09:51)
[2021-05-08] MEDS: ENOXAPARIN 40MG/0.4ML SYR SUBCUT SCH (09:52)
[2021-05-08] MEDS: ALPRAZOLAM 0.25 MG TABLET PO PRN ×2 (09:53→18:08)
[2021-05-08] MEDS: GUAIFENESIN-DM 200MG-20MG/10ML UDC PO PRN ×2 (09:53→18:08)
[2021-05-08] MEDS: BLOOD SUGAR DIAGNOSTIC STRIP TEST SCH ×3 (12:00→21:16)
[2021-05-08] MEDS: INSULIN LISPRO 100 UNITS/ML SUBCUT SCH ×3 (12:47→21:31)
[2021-05-08] MEDS: TRAZODONE HCL 50MG TABLET PO SCH (20:54)
[2021-05-08] MEDS: BENZONATATE 100MG CAPSULE PO PRN (21:55)
[2021-05-09] VITALS (12 sets, daily range): BP systolic 109–166; BP diastolic 42–105
[2021-05-09] MEDS: TRAMADOL 50MG TABLET PO PRN ×3 (03:00→20:57)
[2021-05-09] MEDS: ALPRAZOLAM 0.25 MG TABLET PO PRN (03:00)
[2021-05-09] MEDS: GUAIFENESIN/CODEINE 200-20MG/10ML UDC PO PRN (03:09)
[2021-05-09] MEDS: IPRATROPIUM/ALBUTEROL 0.5-3(2.5)MG/3ML NEB HHN SCH ×5 (03:17→21:17)
[2021-05-09] MEDS: METHYLPREDNISOLONE SOD SUCC 125 MG/2 ML VIAL IV SCH ×3 (05:12→22:00)
[2021-05-09] MEDS: GUAIFENESIN-DM 200MG-20MG/10ML UDC PO PRN (06:51)
[2021-05-09] MEDS: BLOOD SUGAR DIAGNOSTIC STRIP TEST SCH ×4 (07:30→20:56)
[2021-05-09] MEDS: FERROUS SULFATE 325MG TABLET PO SCH ×3 (08:00→18:00)
[2021-05-09] MEDS: FUROSEMIDE 40MG/4ML VIAL IVP SCH ×2 (08:00→17:18)
[2021-05-09] MEDS: INSULIN LISPRO 100 UNITS/ML SUBCUT SCH ×4 (08:22→21:06)
[2021-05-09] MEDS: LACTULOSE 20G/30ML UDC PO SCH (09:00)
[2021-05-09] MEDS: DOCUSATE SODIUM 100MG CAPSULE PO SCH ×2 (09:00→17:00)
[2021-05-09] MEDS: MULTIVITAMINS,THER W-MINERALS TABLET PO SCH (09:39)
[2021-05-09] MEDS: AZATHIOPRINE 50MG TABLET PO SCH (09:39)
[2021-05-09] MEDS: ZINC SULFATE 220 MG ( 50 ) CAPSULE PO SCH (09:39)
[2021-05-09] MEDS: PAROXETINE HCL 10MG TABLET PO SCH (09:39)
[2021-05-09] MEDS: DRONABINOL 2.5MG CAPSULE PO SCH (09:39)
[2021-05-09] MEDS: ENOXAPARIN 40MG/0.4ML SYR SUBCUT SCH (09:40)
[2021-05-09] MEDS ORDERED: ALPRAZOLAM 0.5 MG TABLET PO PRN (11:30)
[2021-05-09] MEDS: TRAZODONE HCL 50MG TABLET PO SCH (20:56)
[2021-05-09] MEDS: ALPRAZOLAM 0.5 MG TABLET PO PRN (20:57)
[2021-05-09] MEDS ORDERED: ALPRAZOLAM 0.5 MG TABLET PO SCH (22:00)
[2021-05-10] VITALS (12 sets, daily range): BP systolic 110–143; BP diastolic 52–101
[2021-05-10] MEDS: FUROSEMIDE 40MG/4ML VIAL IVP SCH ×2 (06:50→17:23)
[2021-05-10 06:51] LABS: CHLORIDE 88 mEq/L (98-107)
[2021-05-10] MEDS: TRAMADOL 50MG TABLET PO PRN ×2 (06:51→21:00)
[2021-05-10] MEDS: ALPRAZOLAM 0.5 MG TABLET PO PRN ×2 (06:51→22:14)
[2021-05-10 07:00] LABS: BASOPHILS % 0.1 % (0.0-2.0); EOSINOPHILS % 5.4 % (0.0-5.0); HEMATOCRIT. 31.3 % (36.0-48.0); HEMOGLOBIN. 10.1 g/dL (12.0-16.0); LYMPHOCYTES % 8.3 % (20.0-50.0); MEAN CORPUSCULAR HEMOGLOBIN 27.8 pg (28.0-32.0); MEAN PLATELET VOLUME 8.5 fl (7.4-10.4); MONOCYTES % 3.9 % (2.0-8.0); NEUTROPHILS % 82.3 % (40.0-76.0); PLATELET 330 x1000/uL (130-400); RED BLOOD CELL COUNT 3.65 mill/uL (4.2-5.4); RED CELL DISTRIBUTION WIDTH 23.7 % (11.6-14.6)
[2021-05-10] MEDS: BENZONATATE 100MG CAPSULE PO PRN ×2 (07:30→21:07)
[2021-05-10] MEDS: BLOOD SUGAR DIAGNOSTIC STRIP TEST SCH ×4 (07:30→21:12)
[2021-05-10] MEDS: INSULIN LISPRO 100 UNITS/ML SUBCUT SCH ×4 (07:35→21:00)
[2021-05-10] MEDS: IPRATROPIUM/ALBUTEROL 0.5-3(2.5)MG/3ML NEB HHN SCH ×5 (07:45→21:24)
[2021-05-10] MEDS: MULTIVITAMINS,THER W-MINERALS TABLET PO SCH (07:47)
[2021-05-10] MEDS: ZINC SULFATE 220 MG ( 50 ) CAPSULE PO SCH (07:47)
[2021-05-10] MEDS: DOCUSATE SODIUM 100MG CAPSULE PO SCH ×2 (07:47→17:32)
[2021-05-10] MEDS: ENOXAPARIN 40MG/0.4ML SYR SUBCUT SCH (07:47)
[2021-05-10] MEDS: LACTULOSE 20G/30ML UDC PO SCH (07:47)
[2021-05-10] MEDS: FERROUS SULFATE 325MG TABLET PO SCH ×3 (07:47→18:00)
[2021-05-10] MEDS: DRONABINOL 2.5MG CAPSULE PO SCH (07:47)
[2021-05-10] MEDS: GUAIFENESIN/CODEINE 200-20MG/10ML UDC PO PRN (08:20)
[2021-05-10] MEDS ORDERED: POTASSIUM CHLORIDE 20MEQ TABLET SR PO SCH (09:00)
[2021-05-10] MEDS ORDERED: LIDOCAINE HCL/PF 1% 2ML VIAL ONE (09:36)
[2021-05-10] MEDS ORDERED: HYDROMORPHONE HCL/PF 2MG/ML CPJ IV NR (10:15)
[2021-05-10] MEDS ORDERED: LIDOCAINE HCL 1% 20ML VIAL (Pyxis) INJ INFIL NR (11:00)
[2021-05-10] MEDS: METHYLPREDNISOLONE SOD SUCC 125 MG/2 ML VIAL IV SCH ×2 (11:11→21:36)
[2021-05-10] MEDS: PAROXETINE HCL 10MG TABLET PO SCH (11:12)
[2021-05-10 12:00] LABS: BG BASE EXCESS 15.8 mmol/L (-2.0-2.0); BG CARBOXYHEMOGLOBIN 0.3 % (0.5-1.5); BG DEOXYHEMOGLOBIN 9.3 % (0.0-5.0); BG FRACTION INSPIRED OXYGEN 100; BG HCO3 ACT 42.5 mmol/L (22.0-26.0); BG METHEMOGLOBIN 0.2 % (0.0-1.5); BG OXYGEN SATURATION 90.7 % (92.0-98.5); BG OXYHEMOGLOBIN 90.2 % (94.0-97.0); BG PO2 61.6 mmHg (75.0-100.0); BG SAMPLE SITE RIGHT RADIAL; BG TOTAL HEMOGLOBIN 10.7 g/dL (12.0-18.0); BG VENT MODE HIGH FLOW
[2021-05-10] MEDS: TRAZODONE HCL 50MG TABLET PO SCH (21:07)
[2021-05-10] MEDS: GUAIFENESIN-DM 200MG-20MG/10ML UDC PO PRN (22:15)
[2021-05-11] VITALS (12 sets, daily range): BP systolic 96–165; BP diastolic 39–116
[2021-05-11] MEDS: ACETAMINOPHEN 325MG TABLET PO PRN ×2 (01:12→09:23)
[2021-05-11] MEDS: IPRATROPIUM/ALBUTEROL 0.5-3(2.5)MG/3ML NEB HHN SCH ×6 (01:58→21:07)
[2021-05-11] MEDS: FUROSEMIDE 40MG/4ML VIAL IVP SCH ×2 (05:27→17:46)
[2021-05-11] MEDS: GUAIFENESIN-DM 200MG-20MG/10ML UDC PO PRN ×2 (06:10→17:07)
[2021-05-11] MEDS: TRAMADOL 50MG TABLET PO PRN ×3 (06:11→21:23)
[2021-05-11] MEDS: ALPRAZOLAM 0.5 MG TABLET PO PRN (06:11)
[2021-05-11] MEDS: BLOOD SUGAR DIAGNOSTIC STRIP TEST SCH ×4 (07:30→21:22)
[2021-05-11] MEDS: FERROUS SULFATE 325MG TABLET PO SCH ×3 (08:00→18:00)
[2021-05-11] MEDS: ENOXAPARIN 40MG/0.4ML SYR SUBCUT SCH (08:51)
[2021-05-11] MEDS: PAROXETINE HCL 10MG TABLET PO SCH (08:52)
[2021-05-11] MEDS: DRONABINOL 2.5MG CAPSULE PO SCH (08:52)
[2021-05-11] MEDS: LACTULOSE 20G/30ML UDC PO SCH (08:53)
[2021-05-11] MEDS: ZINC SULFATE 220 MG ( 50 ) CAPSULE PO SCH (08:54)
[2021-05-11] MEDS: DOCUSATE SODIUM 100MG CAPSULE PO SCH ×2 (08:54→17:00)
[2021-05-11] MEDS: GUAIFENESIN/CODEINE 200-20MG/10ML UDC PO PRN ×2 (09:21→20:50)
[2021-05-11] MEDS: INSULIN LISPRO 100 UNITS/ML SUBCUT SCH ×4 (09:22→21:49)
[2021-05-11] MEDS: METHYLPREDNISOLONE SOD SUCC 125 MG/2 ML VIAL IV SCH ×2 (09:22→21:22)
[2021-05-11] MEDS: MULTIVITAMINS,THER W-MINERALS TABLET PO SCH (09:36)
[2021-05-11] MEDS: TRAZODONE HCL 50MG TABLET PO SCH (20:49)
[2021-05-12] VITALS (12 sets, daily range): BP systolic 97–142; BP diastolic 47–108
[2021-05-12] MEDS: IPRATROPIUM/ALBUTEROL 0.5-3(2.5)MG/3ML NEB HHN SCH ×6 (00:52→20:51)
[2021-05-12] MEDS: GUAIFENESIN-DM 200MG-20MG/10ML UDC PO PRN (01:27)
[2021-05-12] MEDS: ALPRAZOLAM 0.5 MG TABLET PO PRN (01:28)
[2021-05-12] MEDS: FUROSEMIDE 40MG/4ML VIAL IVP SCH ×2 (06:53→17:41)
[2021-05-12] MEDS: BLOOD SUGAR DIAGNOSTIC STRIP TEST SCH ×4 (07:51→21:00)
[2021-05-12] MEDS: FERROUS SULFATE 325MG TABLET PO SCH ×4 (08:00→17:42)
[2021-05-12] MEDS: DRONABINOL 2.5MG CAPSULE PO SCH (08:13)
[2021-05-12] MEDS: MULTIVITAMINS,THER W-MINERALS TABLET PO SCH (08:13)
[2021-05-12] MEDS: BENZONATATE 100MG CAPSULE PO PRN (08:13)
[2021-05-12] MEDS: ZINC SULFATE 220 MG ( 50 ) CAPSULE PO SCH (08:14)
[2021-05-12] MEDS: PAROXETINE HCL 10MG TABLET PO SCH (08:14)
[2021-05-12] MEDS: INSULIN LISPRO 100 UNITS/ML SUBCUT SCH ×4 (08:15→21:18)
[2021-05-12] MEDS: LACTULOSE 20G/30ML UDC PO SCH (08:22)
[2021-05-12] MEDS: DOCUSATE SODIUM 100MG CAPSULE PO SCH ×2 (08:22→17:00)
[2021-05-12] MEDS: ENOXAPARIN 40MG/0.4ML SYR SUBCUT SCH (09:05)
[2021-05-12] MEDS: TRAMADOL 50MG TABLET PO PRN ×3 (09:06→23:58)
[2021-05-12] MEDS ORDERED: ENOXAPARIN 40MG/0.4ML SYR SUBCUT SCH (09:30)
[2021-05-12] MEDS ORDERED: DILTIAZEM HCL 5MG/ML 5ML VIAL IV SCH (09:30)
[2021-05-12] MEDS: METHYLPREDNISOLONE SOD SUCC 125 MG/2 ML VIAL IV SCH ×2 (09:56→21:19)
[2021-05-12 10:14] LABS: HEMATOCRIT. 32.7 % (36.0-48.0); HEMOGLOBIN. 10.6 g/dL (12.0-16.0); MEAN CORPUSCULAR VOLUME 86.4 fL (81.0-99.0); MEAN PLATELET VOLUME 8.4 fl (7.4-10.4); PLATELET 424 x1000/uL (130-400); RED BLOOD CELL COUNT 3.79 mill/uL (4.2-5.4); RED CELL DISTRIBUTION WIDTH 24.5 % (11.6-14.6)
[2021-05-12 10:22] LABS: CHLORIDE 85 mEq/L (98-107)
[2021-05-12] MEDS: GUAIFENESIN/CODEINE 200-20MG/10ML UDC PO PRN ×3 (10:36→23:58)
[2021-05-12] MEDS ORDERED: POTASSIUM CHLORIDE 20MEQ TABLET SR PO NR (11:30)
[2021-05-12] MEDS: SPIRONOLACTONE 25MG TABLET PO SCH (12:11)
[2021-05-12] MEDS: DILTIAZEM HCL 30MG TABLET PO SCH ×3 (12:12→18:51)
[2021-05-12] MEDS ORDERED: POTASSIUM CHLORIDE INJ 40 MEQ in DEXT 5% WATER 250 ML IV NR (12:30)
[2021-05-12 13:51] LABS: PLATELET ESTIMATE SLIGHTLY INCREASED
[2021-05-12 16:11] LABS: CLARITY URINE CLOUDY (CLEAR); COLOR URINE DARK YELLOW (YELLOW); KETONES URINE TRACE (NEGATIVE); LEUKOCYTE ESTERASE URINE 2+ (NEGATIVE); NITRITE URINE NEGATIVE (NEGATIVE); OCCULT BLOOD URINE 1+ (NEGATIVE); PROTEIN URINE 1+ (NEGATIVE); SPECIFIC GRAVITY URINE 1.023 (1.005-1.030)
[2021-05-12] MEDS: ENOXAPARIN 80MG/0.8ML SYR SUBCUT SCH (20:14)
[2021-05-12] MEDS: TRAZODONE HCL 50MG TABLET PO SCH (20:18)
[2021-05-13] VITALS (9 sets, daily range): BP systolic 95–130; BP diastolic 52–74
[2021-05-13] MEDS: IPRATROPIUM/ALBUTEROL 0.5-3(2.5)MG/3ML NEB HHN SCH ×6 (00:02→20:00)
[2021-05-13] MEDS: DILTIAZEM HCL 30MG TABLET PO SCH ×4 (00:50→17:47)
[2021-05-13] MEDS: FUROSEMIDE 40MG/4ML VIAL IVP SCH ×2 (05:43→17:52)
[2021-05-13] MEDS: BLOOD SUGAR DIAGNOSTIC STRIP TEST SCH ×4 (07:52→21:52)
[2021-05-13] MEDS: LACTULOSE 20G/30ML UDC PO SCH (09:00)
[2021-05-13] MEDS ORDERED: CEFTRIAXONE 1 G PREMIX 50 ML IV SCH (09:30)
[2021-05-13] MEDS: ZINC SULFATE 220 MG ( 50 ) CAPSULE PO SCH (09:47)
[2021-05-13] MEDS: ENOXAPARIN 80MG/0.8ML SYR SUBCUT SCH ×2 (09:48→21:55)
[2021-05-13] MEDS: INSULIN LISPRO 100 UNITS/ML SUBCUT SCH ×4 (09:49→21:50)
[2021-05-13] MEDS: MULTIVITAMINS,THER W-MINERALS TABLET PO SCH (09:49)
[2021-05-13] MEDS: METHYLPREDNISOLONE SOD SUCC 125 MG/2 ML VIAL IV SCH (09:50)
[2021-05-13] MEDS: DRONABINOL 2.5MG CAPSULE PO SCH (09:50)
[2021-05-13] MEDS: FERROUS SULFATE 325MG TABLET PO SCH ×3 (09:51→17:28)
[2021-05-13] MEDS: PAROXETINE HCL 10MG TABLET PO SCH (09:51)
[2021-05-13] MEDS: DOCUSATE SODIUM 100MG CAPSULE PO SCH ×2 (09:51→17:00)
[2021-05-13] MEDS: ALPRAZOLAM 0.5 MG TABLET PO PRN ×2 (10:18→19:16)
[2021-05-13] MEDS: SPIRONOLACTONE 25MG TABLET PO SCH (10:18)
[2021-05-13] MEDS: CEFTRIAXONE 1,000 MG in DEXTROSE 5% WATER 50 ML IV SCH (12:18)
[2021-05-13] MEDS: GUAIFENESIN/CODEINE 200-20MG/10ML UDC PO PRN (15:18)
[2021-05-13] MEDS ORDERED: POTASSIUM CHLORIDE 20MEQ/PACKET PO NR (17:15)
[2021-05-13] MEDS: TRAZODONE HCL 50MG TABLET PO SCH (21:51)
[2021-05-14] VITALS (56 sets, daily range): BP systolic 46–165; BP diastolic 26–129
[2021-05-14] MEDS: IPRATROPIUM/ALBUTEROL 0.5-3(2.5)MG/3ML NEB HHN SCH ×3 (00:09→07:44)
[2021-05-14] MEDS: ALPRAZOLAM 0.5 MG TABLET PO PRN (02:00)
[2021-05-14] MEDS: ACETAMINOPHEN 325MG TABLET PO PRN (02:00)
[2021-05-14 05:15] LABS: BASOPHILS % 0.5 % (0.0-2.0); EOSINOPHILS % 1.5 % (0.0-5.0); HEMATOCRIT. 36.1 % (36.0-48.0); HEMOGLOBIN. 11.4 g/dL (12.0-16.0); LYMPHOCYTES % 7.5 % (20.0-50.0); MEAN CORPUSCULAR HEMOGLOBIN 27.9 pg (28.0-32.0); MEAN CORPUSCULAR VOLUME 88.5 fL (81.0-99.0); MEAN PLATELET VOLUME 8.9 fl (7.4-10.4); MONOCYTES % 2.8 % (2.0-8.0); NEUTROPHILS % 87.7 % (40.0-76.0); PLATELET 419 x1000/uL (130-400); RED BLOOD CELL COUNT 4.08 mill/uL (4.2-5.4); RED CELL DISTRIBUTION WIDTH 23.7 % (11.6-14.6)
[2021-05-14 05:18] LABS: CHLORIDE 89 mEq/L (98-107)
[2021-05-14] MEDS: DILTIAZEM HCL 30MG TABLET PO SCH ×5 (06:00→23:05)
[2021-05-14] MEDS: BLOOD SUGAR DIAGNOSTIC STRIP TEST SCH ×4 (07:30→23:24)
[2021-05-14] MEDS: FERROUS SULFATE 325MG TABLET PO SCH ×3 (08:00→17:25)
[2021-05-14] MEDS ORDERED: SODIUM BICARBONATE 8.4% 1 MEQ/ML 50ML SYR IV ONE (08:39)
[2021-05-14] MEDS ORDERED: CALCIUM CHLORIDE 1GM/10ML SYR IV ONE (08:39)
[2021-05-14] MEDS ORDERED: EPINEPHRINE 0.1MG/ML (1:10,000) 10ML SYR ONE (08:39)
[2021-05-14] MEDS: DOCUSATE SODIUM 100MG CAPSULE PO SCH ×2 (09:00→17:25)
[2021-05-14] MEDS: FUROSEMIDE 40MG/4ML VIAL IVP SCH ×2 (09:07→17:25)
[2021-05-14] MEDS: METHYLPREDNISOLONE SOD SUCC 40 MG/ML VIAL IV SCH (09:08)
[2021-05-14] MEDS: DRONABINOL 2.5MG CAPSULE PO SCH (09:09)
[2021-05-14] MEDS: ENOXAPARIN 80MG/0.8ML SYR SUBCUT SCH ×2 (09:09→23:18)
[2021-05-14] MEDS: MULTIVITAMINS,THER W-MINERALS TABLET PO SCH (09:09)
[2021-05-14] MEDS: ZINC SULFATE 220 MG ( 50 ) CAPSULE PO SCH (09:09)
[2021-05-14] MEDS: SPIRONOLACTONE 25MG TABLET PO SCH (09:10)
[2021-05-14] MEDS: PAROXETINE HCL 10MG TABLET PO SCH (09:10)
[2021-05-14] MEDS: INSULIN LISPRO 100 UNITS/ML SUBCUT SCH ×4 (09:12→23:24)
[2021-05-14] MEDS: GUAIFENESIN-DM 200MG-20MG/10ML UDC PO PRN (09:18)
[2021-05-14] MEDS ORDERED: POTASSIUM CHLORIDE 20MEQ TABLET SR PO NR (10:00)
[2021-05-14] MEDS ORDERED: FENTANYL CITRATE/PF 2,500 MCG in SODIUM CHLORIDE 0.9% 200 ML IV PRN (11:15)
[2021-05-14] MEDS ORDERED: MIDAZOLAM HCL 100 MG in SODIUM CHLORIDE 0.9% 100 ML IV PRN (11:45)
[2021-05-14] MEDS ORDERED: MIDAZOLAM 100MG/100ML PMX 100 ML IV PRN (11:45)
[2021-05-14 11:49] LABS: BG BASE EXCESS 10.4 mmol/L (-2.0-2.0); BG CARBOXYHEMOGLOBIN 0.7 % (0.5-1.5); BG DEOXYHEMOGLOBIN 6.3 % (0.0-5.0); BG FRACTION INSPIRED OXYGEN 100; BG HCO3 ACT 36.9 mmol/L (22.0-26.0); BG METHEMOGLOBIN 0.2 % (0.0-1.5); BG OXYGEN SATURATION 93.6 % (92.0-98.5); BG OXYHEMOGLOBIN 92.8 % (94.0-97.0); BG PCO2 59.1 mmHg (35.0-45.0); BG PH 7.413 (7.350-7.450); BG PO2 71.4 mmHg (75.0-100.0); BG SAMPLE SITE LEFT BRACHIAL; BG TOTAL HEMOGLOBIN 11.5 g/dL (12.0-18.0); BG VENT MODE PRVC
[2021-05-14] MEDS ORDERED: POTASSIUM CHLORIDE INJ 40 MEQ in DEXT 5% WATER 250 ML IV NR (12:30)
[2021-05-14] MEDS ORDERED: VASOPRESSIN 20 UNIT in SODIUM CHLORIDE 0.9% 99 ML IV PRN (12:30)
[2021-05-14] MEDS: NOREPINEPHRINE 32 MG in DEXT 5% WATER 218 ML IV PRN (12:35)
[2021-05-14] MEDS: PHENYLEPHRINE 100 MG in DEXT 5% WATER 240 ML IV PRN ×2 (12:36→23:21)
[2021-05-14] MEDS: CEFTRIAXONE 1,000 MG in DEXTROSE 5% WATER 50 ML IV SCH (13:03)
[2021-05-14] MEDS: TRAZODONE HCL 50MG TABLET PO SCH (20:59)
[2021-05-15] VITALS (48 sets, daily range): BP systolic 48–157; BP diastolic 19–99
[2021-05-15] MEDS: IPRATROPIUM/ALBUTEROL 0.5-3(2.5)MG/3ML NEB HHN SCH ×3 (00:34→08:00)
[2021-05-15] MEDS: NOREPINEPHRINE 32 MG in DEXT 5% WATER 218 ML IV PRN (01:00)
[2021-05-15] MEDS: DILTIAZEM HCL 30MG TABLET PO SCH ×2 (05:02→11:10)
[2021-05-15] MEDS: BLOOD SUGAR DIAGNOSTIC STRIP TEST SCH (05:26)
[2021-05-15] MEDS: INSULIN LISPRO 100 UNITS/ML SUBCUT SCH (05:26)
[2021-05-15 08:36] LABS: BG BASE EXCESS 13.5 mmol/L (-2.0-2.0); BG CARBOXYHEMOGLOBIN 0.1 % (0.5-1.5); BG DEOXYHEMOGLOBIN 0.7 % (0.0-5.0); BG HCO3 ACT 37.6 mmol/L (22.0-26.0); BG METHEMOGLOBIN 0.3 % (0.0-1.5); BG OXYGEN SATURATION 99.3 % (92.0-98.5); BG OXYHEMOGLOBIN 98.9 % (94.0-97.0); BG PCO2 45.3 mmHg (35.0-45.0); BG PH 7.537 (7.350-7.450); BG PO2 156.2 mmHg (75.0-100.0); BG SAMPLE SITE RIGHT RADIAL; BG TOTAL HEMOGLOBIN 11.6 g/dL (12.0-18.0); BG VENT MODE VENT- PRVC
[2021-05-15] MEDS: METHYLPREDNISOLONE SOD SUCC 40 MG/ML VIAL IV SCH (08:52)
[2021-05-15] MEDS: PAROXETINE HCL 10MG TABLET PO SCH (08:53)
[2021-05-15] MEDS: MULTIVITAMINS,THER W-MINERALS TABLET PO SCH (08:53)
[2021-05-15] MEDS: ZINC SULFATE 220 MG ( 50 ) CAPSULE PO SCH (08:53)
[2021-05-15] MEDS: SPIRONOLACTONE 25MG TABLET PO SCH (08:54)
[2021-05-15] MEDS: DOCUSATE SODIUM 100MG CAPSULE PO SCH (08:55)
[2021-05-15] MEDS ORDERED: THIAMINE HCL 100MG TABLET PO SCH (09:00)
[2021-05-15] MEDS ORDERED: FUROSEMIDE 40MG/4ML VIAL IVP SCH (09:00)
[2021-05-15] MEDS ORDERED: FOLIC ACID 1MG TABLET PO SCH (09:00)
[2021-05-15] MEDS ORDERED: FERROUS SULFATE 325MG TABLET PO SCH (09:00)
[2021-05-15] MEDS: ENOXAPARIN 80MG/0.8ML SYR SUBCUT SCH (09:07)
[2021-05-15] MEDS ORDERED: PIPERACILLIN/TAZOBACTAM 3.375 G in DEXTROSE 5% WATER 50 ML IV SCH (10:00)
[2021-05-15] MEDS ORDERED: AMIODARONE HCL 50MG/ML 3ML VIAL IV ONE (10:00)
[2021-05-15 10:01] LABS: BASOPHILS % 0.5 % (0.0-2.0); HEMOGLOBIN. 11.2 g/dL (12.0-16.0); LYMPHOCYTES % 13.4 % (20.0-50.0); MEAN CORPUSCULAR HEMOGLOBIN 28.3 pg (28.0-32.0); MEAN CORPUSCULAR VOLUME 88.8 fL (81.0-99.0); MEAN PLATELET VOLUME 9.2 fl (7.4-10.4); MONOCYTES % 3.1 % (2.0-8.0); PLATELET 244 x1000/uL (130-400); RED BLOOD CELL COUNT 3.95 mill/uL (4.2-5.4); RED CELL DISTRIBUTION WIDTH 24.5 % (11.6-14.6)
[2021-05-15] MEDS ORDERED: AMIODARONE HCL 900 MG in DEXT 5% WATER 500 ML IV PRN (10:30)
[2021-05-15] MEDS: DRONABINOL 2.5MG CAPSULE PO SCH (10:47)
[2021-05-15] MEDS ORDERED: AMIODARONE HCL 150 MG in DEXT 5% WATER 97 ML IV SCH (11:00)
[2021-05-15] MEDS ORDERED: PROPOFOL 10MG/ML 100ML 100 ML IV PRN (11:30)
[2021-05-15] MEDS ORDERED: MORPHINE SULFATE 250 MG in DEXT 5% WATER 240 ML IV SCH (11:45)
== END 2021-05-15 15:22 | DRG 871 ==
LOC: ER 02:38 → 7WST 04:31 → ENRESERV 04:42 → 5EST 21:57 → MICUSO 05-14 10:54
PROVIDERS: ADMIT Internal Medicine; ATTEND Internal Medicine
PROC: 5A09357 Assistance with Respiratory Ventilation, Less than 24 Consecutive Hours, Continuous Positive Airway Pressure (ICD-10-PCS; 2021-02-27)
PROC: B54MZZA Ultrasonography of Right Upper Extremity Veins, Guidance (ICD-10-PCS; 2021-03-02)
PROC: 05HY33Z Insertion of Infusion Device into Upper Vein, Percutaneous Approach (ICD-10-PCS; 2021-03-02)
PROC: 5A0955A Assistance with Respiratory Ventilation, Greater than 96 Consecutive Hours, High Flow/Velocity Cannula (ICD-10-PCS; 2021-03-04)
PROC: 5A0935A Assistance with Respiratory Ventilation, Less than 24 Consecutive Hours, High Flow/Velocity Cannula (ICD-10-PCS; 2021-03-08)
PROC: 5A0935A Assistance with Respiratory Ventilation, Less than 24 Consecutive Hours, High Flow/Velocity Cannula (ICD-10-PCS; 2021-03-09)
PROC: 5A0935A Assistance with Respiratory Ventilation, Less than 24 Consecutive Hours, High Flow/Velocity Cannula (ICD-10-PCS; 2021-03-10)
PROC: 5A0955A Assistance with Respiratory Ventilation, Greater than 96 Consecutive Hours, High Flow/Velocity Cannula (ICD-10-PCS; 2021-03-11)
PROC: 5A0935A Assistance with Respiratory Ventilation, Less than 24 Consecutive Hours, High Flow/Velocity Cannula (ICD-10-PCS; 2021-04-02)
PROC: 5A0945A Assistance with Respiratory Ventilation, 24-96 Consecutive Hours, High Flow/Velocity Cannula (ICD-10-PCS; 2021-04-03)
PROC: 5A0935A Assistance with Respiratory Ventilation, Less than 24 Consecutive Hours, High Flow/Velocity Cannula (ICD-10-PCS; 2021-04-04)
PROC: 5A0945A Assistance with Respiratory Ventilation, 24-96 Consecutive Hours, High Flow/Velocity Cannula (ICD-10-PCS; 2021-04-05)
PROC: 5A0935A Assistance with Respiratory Ventilation, Less than 24 Consecutive Hours, High Flow/Velocity Cannula (ICD-10-PCS; 2021-04-08)
PROC: 5A0935A Assistance with Respiratory Ventilation, Less than 24 Consecutive Hours, High Flow/Velocity Cannula (ICD-10-PCS; 2021-04-09)
PROC: 5A0935A Assistance with Respiratory Ventilation, Less than 24 Consecutive Hours, High Flow/Velocity Cannula (ICD-10-PCS; 2021-04-10)
PROC: 5A0935A Assistance with Respiratory Ventilation, Less than 24 Consecutive Hours, High Flow/Velocity Cannula (ICD-10-PCS; 2021-04-11)
PROC: 5A0945A Assistance with Respiratory Ventilation, 24-96 Consecutive Hours, High Flow/Velocity Cannula (ICD-10-PCS; 2021-04-12)
PROC: 5A0935A Assistance with Respiratory Ventilation, Less than 24 Consecutive Hours, High Flow/Velocity Cannula (ICD-10-PCS; 2021-04-13)
PROC: 5A0935A Assistance with Respiratory Ventilation, Less than 24 Consecutive Hours, High Flow/Velocity Cannula (ICD-10-PCS; 2021-04-14)
PROC: 5A0935A Assistance with Respiratory Ventilation, Less than 24 Consecutive Hours, High Flow/Velocity Cannula (ICD-10-PCS; 2021-04-15)
PROC: 5A0935A Assistance with Respiratory Ventilation, Less than 24 Consecutive Hours, High Flow/Velocity Cannula (ICD-10-PCS; 2021-04-16)
PROC: 5A0935A Assistance with Respiratory Ventilation, Less than 24 Consecutive Hours, High Flow/Velocity Cannula (ICD-10-PCS; 2021-04-17)
PROC: 5A0935A Assistance with Respiratory Ventilation, Less than 24 Consecutive Hours, High Flow/Velocity Cannula (ICD-10-PCS; 2021-04-18)
PROC: 5A0935A Assistance with Respiratory Ventilation, Less than 24 Consecutive Hours, High Flow/Velocity Cannula (ICD-10-PCS; 2021-04-19)
PROC: 5A0935A Assistance with Respiratory Ventilation, Less than 24 Consecutive Hours, High Flow/Velocity Cannula (ICD-10-PCS; 2021-04-20)
PROC: 5A0945A Assistance with Respiratory Ventilation, 24-96 Consecutive Hours, High Flow/Velocity Cannula (ICD-10-PCS; 2021-04-21)
PROC: 5A0935A Assistance with Respiratory Ventilation, Less than 24 Consecutive Hours, High Flow/Velocity Cannula (ICD-10-PCS; 2021-04-23)
PROC: 5A0935A Assistance with Respiratory Ventilation, Less than 24 Consecutive Hours, High Flow/Velocity Cannula (ICD-10-PCS; 2021-04-24)
PROC: 5A0935A Assistance with Respiratory Ventilation, Less than 24 Consecutive Hours, High Flow/Velocity Cannula (ICD-10-PCS; 2021-04-25)
PROC: 5A0955A Assistance with Respiratory Ventilation, Greater than 96 Consecutive Hours, High Flow/Velocity Cannula (ICD-10-PCS; 2021-04-26)
PROC: 5A0935A Assistance with Respiratory Ventilation, Less than 24 Consecutive Hours, High Flow/Velocity Cannula (ICD-10-PCS; 2021-05-01)
PROC: 5A0935A Assistance with Respiratory Ventilation, Less than 24 Consecutive Hours, High Flow/Velocity Cannula (ICD-10-PCS; 2021-05-02)
PROC: 5A0935A Assistance with Respiratory Ventilation, Less than 24 Consecutive Hours, High Flow/Velocity Cannula (ICD-10-PCS; 2021-05-03)
PROC: 5A0935A Assistance with Respiratory Ventilation, Less than 24 Consecutive Hours, High Flow/Velocity Cannula (ICD-10-PCS; 2021-05-04)
PROC: 5A0945A Assistance with Respiratory Ventilation, 24-96 Consecutive Hours, High Flow/Velocity Cannula (ICD-10-PCS; 2021-05-05)
PROC: 5A0935A Assistance with Respiratory Ventilation, Less than 24 Consecutive Hours, High Flow/Velocity Cannula (ICD-10-PCS; 2021-05-06)
PROC: 5A0945A Assistance with Respiratory Ventilation, 24-96 Consecutive Hours, High Flow/Velocity Cannula (ICD-10-PCS; 2021-05-07)
PROC: 5A0935A Assistance with Respiratory Ventilation, Less than 24 Consecutive Hours, High Flow/Velocity Cannula (ICD-10-PCS; 2021-05-09)
PROC: 5A09457 Assistance with Respiratory Ventilation, 24-96 Consecutive Hours, Continuous Positive Airway Pressure (ICD-10-PCS; 2021-05-10)
PROC: 5A0935A Assistance with Respiratory Ventilation, Less than 24 Consecutive Hours, High Flow/Velocity Cannula (ICD-10-PCS; 2021-05-10)
PROC: 5A09357 Assistance with Respiratory Ventilation, Less than 24 Consecutive Hours, Continuous Positive Airway Pressure (ICD-10-PCS; 2021-05-10)
PROC: 5A0935A Assistance with Respiratory Ventilation, Less than 24 Consecutive Hours, High Flow/Velocity Cannula (ICD-10-PCS; 2021-05-11)
PROC: 5A0945A Assistance with Respiratory Ventilation, 24-96 Consecutive Hours, High Flow/Velocity Cannula (ICD-10-PCS; 2021-05-12)
PROC: 5A0935A Assistance with Respiratory Ventilation, Less than 24 Consecutive Hours, High Flow/Velocity Cannula (ICD-10-PCS; 2021-05-13)
PROC: 5A12012 Performance of Cardiac Output, Single, Manual (ICD-10-PCS; principal; 2021-05-14)
PROC: 0BH17EZ Insertion of Endotracheal Airway into Trachea, Via Natural or Artificial Opening (ICD-10-PCS; 2021-05-14)
PROC: 5A1935Z Respiratory Ventilation, Less than 24 Consecutive Hours (ICD-10-PCS; 2021-05-14)
DX: A41.81 Sepsis due to Enterococcus (principal); J18.9 Pneumonia, unspecified organism; J96.21 Acute and chronic respiratory failure with hypoxia; I50.33 Acute on chronic diastolic (congestive) heart failure; E87.2 Acidosis; J44.0 Chronic obstructive pulmonary disease with (acute) lower respiratory infection; E44.1 Mild protein-calorie malnutrition; G93.40 Encephalopathy, unspecified; I47.1 Supraventricular tachycardia; N17.9 Acute kidney failure, unspecified; J44.1 Chronic obstructive pulmonary disease with (acute) exacerbation; E87.6 Hypokalemia; E87.8 Other disorders of electrolyte and fluid balance, not elsewhere classified; F41.9 Anxiety disorder, unspecified; Z20.822 Contact with and (suspected) exposure to COVID-19; I11.0 Hypertensive heart disease with heart failure; I48.0 Paroxysmal atrial fibrillation; E66.01 Morbid (severe) obesity due to excess calories; R65.20 Severe sepsis without septic shock; I49.3 Ventricular premature depolarization; J84.10 Pulmonary fibrosis, unspecified; Z51.5 Encounter for palliative care; I46.9 Cardiac arrest, cause unspecified; D64.9 Anemia, unspecified; Z86.16 Personal history of COVID-19; Z99.81 Dependence on supplemental oxygen; Z79.899 Other long term (current) drug therapy; Z68.23 Body mass index [BMI] 23.0-23.9, adult
CPT/HCPCS: 31500; 36415; 36600; 71045; 74018; 76937; 80048; 80053; 81003; 82375; 82728; 82805; 82962; 83036; 83540; 83550; 83605; 83735; 83880; 84145; 84484; 85025; 85379; 87070; 87077; 87186; 92950; 93005; 93306; 93970; 94002; 94003; 94640; 94660; 97162; 97164; 99285; C1725; J0282; J0290; J0692; J0696; J1170; J1650; J1815; J1885; J1940; J1956; J2020; J2270; J2274; J2370; J2405; J2543; J2704; J2920; J2930; J3370; J3475; J3480; J3490; J7040; J7050; J7060; J7120; J7500; J7608; Q0167; U0003; U0005; A4315